=== PATIENT | female | born 1980 | race Hispanic/Latino ===

== ENCOUNTER 2017-05-03 14:06 | Emergency (ER) | payer SELFPAY ==
[2017-05-03 14:39] LABS: BHCG - Serum Negative (NEGATIVE); Pregs Control Background? CLEAR/WHITE (CLR/WHITE); Pregs Control Bar Appear? YES (CONTROL BAR)
[2017-05-03] MEDS ORDERED: Ondansetron HCl/PF 4 MG/2 ML Vial ONE (14:41)
[2017-05-03 14:51] LABS: Anion Gap 10 mmol/L (10-20); BUN (Urea Nitrogen) 13 mg/dL (7.0-18.7); Calc. Creatinine Clearance 0 mL/min (70-130); Calcium 9.2 mg/dL (7.8-10.44); Carbon Dioxide 26 mmol/L (22-29); Chloride 105 mmol/L (98-107); Estimated GFR-MDRD Greater than 90; Glucose 101 mg/dL (70-105); Sodium 137 mmol/L (136-145)
[2017-05-03] MEDS ORDERED: Ketorolac Tromethamine 30 MG/ML VIAL ONE (15:13)
[2017-05-03 15:30] LABS: Bilirubin Negative (Negative); Blood, Urine Negative (Negative); Clarity CLEAR (Clear); Glucose, Urine (Dipstick) Negative (Negative); Leukocyte Small (Negative); Nitrite Negative (Negative); Protein, Urine (Dipstick) Negative (Neg-Trace); Specific Gravity, Urine 1.016 (1.002-1.036); Urobilinogen 0.2 mg/dL (0.2-1.0); pH, Urine 6.5 (5.0-9.0)
[2017-05-03 15:32] LABS: Bacteria/HPF 1+ HPF (None Seen); Hyaline Casts/LPF 0-3 HYALINE CAST LPF (0-3 Hyaline); Pathc Cast-AUWi Flag 0.13 (0-2.49)
== END 2017-05-03 16:09 | disposition home or self-care (01) ==
LOC: ERS 14:06
DX: R51 Headache (principal); R11.2 Nausea with vomiting, unspecified; N39.0 Urinary tract infection, site not specified; F17.210 Nicotine dependence, cigarettes, uncomplicated
CPT/HCPCS: 36415; 80048; 81003; 81015; 84703; 96361; 96374; 96375; J1885; J2405

== ENCOUNTER 2017-07-29 21:53 | Emergency (ER) | payer SELFPAY ==
[2017-07-29 22:27] LABS: Bilirubin Negative (Negative); Blood, Urine Negative (Negative); Clarity CLOUDY (Clear); Glucose, Urine (Dipstick) Negative (Negative); Leukocyte Moderate (Negative); Nitrite Negative (Negative); Protein, Urine (Dipstick) Negative (Neg-Trace); Specific Gravity, Urine 1.018 (1.002-1.036); Urobilinogen 0.2 mg/dL (0.2-1.0); pH, Urine 6.5 (5.0-9.0)
[2017-07-29 22:28] LABS: Pregnancy Test - Urine (BHCG) Negative (Negative); Pregu Control Background? CLEAR/WHITE (CLR/WHITE); Pregu Control Bar Appear? YES (CONTROL BAR); Specific Gravity 1.018 (1.002-1.036)
[2017-07-29 22:29] LABS: Bacteria/HPF 2+ HPF (None Seen); Hyaline Casts/LPF 0-3 HYALINE CAST LPF (0-3 Hyaline); Pathc Cast-AUWi Flag 0.87 (0-2.49); RBC/HPF 0-3 HPF (0-3)
[2017-07-29 22:37] LABS: #Basophils 0.1 thou/uL (0.0-0.2); #Eosinphils 0.1 thou/uL (0.0-0.7); #Monocytes 0.9 thou/uL (0.11-0.59); #Neutrophils 5.2 thou/uL (1.40-6.50); %Basophils 0.8 % (0.0-1.0); %Eosinophils 1.3 % (0.0-10.0); %Lymphocytes 32.3 % (21.0-51.0); %Monocytes 9.1 % (0.0-10.0); %Neutrophils 56.5 % (42.0-75.0); Hemoglobin 10.8 g/dL (12.0-16.0); Mean Corpuscular HGB CONC 33.5 g/dL (32.0-36.0); Mean Corpuscular Hemoglobin 25.5 pg (27.0-31.0); Mean Corpuscular Volume 76.2 fl (81.0-99.0); Mean Platelet Volume 7.8 fL (7.4-10.4); Platelet Count 236 thou/uL (130-400); RBC Distribution Width 13.3 % (11.5-14.5); Red Blood Cell (RBC) Count 4.24 mill/uL (4.20-5.40); White Blood Cell (WBC) Count 9.3 thou/uL (4.8-10.8)
[2017-07-29 22:52] LABS: ALT (SGPT) 16 U/L (8-55); AST (SGOT) 16 U/L (5-34); Albumin 4.2 g/dL (3.5-5.0); Alkaline Phosphatase 82 U/L (40-150); Anion Gap 11 mmol/L (10-20); BUN (Urea Nitrogen) 15 mg/dL (7.0-18.7); Bilirubin, Total 0.2 mg/dL (0.2-1.2); Calc. Creatinine Clearance 0 mL/min (70-130); Calcium 9.2 mg/dL (7.8-10.44); Carbon Dioxide 25 mmol/L (22-29); Chloride 107 mmol/L (98-107); Estimated GFR-MDRD Greater than 90; Globulin 3.4 g/dL (2.4-3.5); Glucose 101 mg/dL (70-105); Lipase 32 U/L (8-78); Protein, Total 7.6 g/dL (6.0-8.3); Sodium 139 mmol/L (136-145)
[2017-07-30] MEDS ORDERED: Magnesium Citrate 300 ML BOT ONE (03:58)
--- NOTE | 2017-07-30 07:58 | RAD ---
AP VIEW CHEST: HISTORY: Abdominal distention and bloating, worse after eating. FINDINGS: AP view chest is obtained. Comparison is made to previous exam from 03/04/15. AP view chest demonstrates the lungs to be well aerated. No evidence of active intrathoracic disease is seen. No evidence of effusions, pneumonia, or pneumothorax is seen. IMPRESSION: Unremarkable AP view chest. POS: [facility]
--- NOTE | 2017-07-30 08:45 | CT ---
CONTRAST ENHANCED CT IMAGES OF ABDOMEN AND PELVIS: HISTORY: Patient with abdominal pain for 4 days. FINDINGS: Unfortunately, oral contrast was not given. Please see note under the history on the PACS system. The lung bases are unremarkable. No evidence of free intraperitoneal air is seen. The liver, spleen, gallbladder, pancreas, adrenal glands, and kidneys are unremarkable. No evidence of periaortic lymphadenopathy is seen. The patient has a prominent uterus. The colon contains a moderate amount of stool. IMPRESSION: Unremarkable contrast-enhanced CT images of the abdomen and pelvis. POS: [facility]
[2017-07-30] MEDS ORDERED: ISOVUE-370 76%-LOCM 1 ML ONE (16:38)
== END 2017-07-30 04:00 | disposition home or self-care (01) ==
LOC: ERS 21:53
DX: K59.00 Constipation, unspecified (principal); F17.210 Nicotine dependence, cigarettes, uncomplicated
CPT/HCPCS: 36415; 71045; 74177; 80053; 81003; 81015; 81025; 83605; 83690; 85025; 87086

== ENCOUNTER 2018-09-08 02:29 | Emergency (ER) | payer OTHER, SELFPAY ==
[2018-09-08 03:52] LABS: #Basophils 0.1 thou/uL (0.0-0.2); #Eosinphils 0.1 thou/uL (0.0-0.7); #Lymphocytes 2.8 thou/uL (1.20-3.40); #Monocytes 0.8 thou/uL (0.11-0.59); #Neutrophils 6.4 thou/uL (1.40-6.50); %Basophils 0.6 % (0.0-1.0); %Eosinophils 1.2 % (0.0-10.0); %Lymphocytes 27.1 % (21.0-51.0); %Neutrophils 63.2 % (42.0-75.0); Hemoglobin 11.8 g/dL (12.0-16.0); Mean Corpuscular HGB CONC 33.6 g/dL (32.0-36.0); Mean Corpuscular Volume 80.3 fL (78.0-98.0); Mean Platelet Volume 8.9 fL (7.4-10.4); Platelet Count 206 thou/uL (130-400); RBC Distribution Width 17.2 % (11.5-14.5); Red Blood Cell (RBC) Count 4.37 mill/uL (4.20-5.40); White Blood Cell (WBC) Count 10.2 thou/uL (4.8-10.8)
[2018-09-08 04:04] LABS: ALT (SGPT) 8 U/L (8-55); AST (SGOT) 10 U/L (5-34); Albumin 3.8 g/dL (3.5-5.0); Alkaline Phosphatase 66 U/L (40-150); Anion Gap 14 mmol/L (10-20); BUN (Urea Nitrogen) 8 mg/dL (7.0-18.7); Bilirubin, Total 0.2 mg/dL (0.2-1.2); Calc. Creatinine Clearance 0 mL/min (70-130); Calcium 9.2 mg/dL (7.8-10.44); Carbon Dioxide 20 mmol/L (22-29); Chloride 106 mmol/L (98-107); Estimated GFR-MDRD Greater than 90; Globulin 3.5 g/dL (2.4-3.5); Glucose 106 mg/dL (70-105); Lipase 11 U/L (8-78); Potassium 3.6 mmol/L (3.5-5.1); Protein, Total 7.3 g/dL (6.0-8.3); Sodium 136 mmol/L (136-145)
[2018-09-08 04:21] LABS: Bilirubin Negative (Negative); Blood, Urine Negative (Negative); Clarity CLOUDY (Clear); Glucose, Urine (Dipstick) Negative (Negative); Leukocyte Moderate (Negative); Nitrite Negative (Negative); Protein, Urine (Dipstick) Negative (Neg-Trace); Urobilinogen 0.2 mg/dL (0.2-1.0); pH, Urine 5.5 (5.0-9.0)
[2018-09-08 04:23] LABS: Bacteria/HPF 1+ HPF (None Seen); WBC/HPF 21-50 HPF (0-3)
[2018-09-08 04:41] LABS: Hyaline Casts/LPF 0-3 HYALINE CAST LPF (0-3 Hyaline); Other Casts/LPF None Seen LPF (0-3 Hyaline); Pathc Cast-AUWi Flag 3.12 (0-2.49)
--- NOTE | 2018-09-08 09:50 | ULT ---
OBSTETRIC ULTRASOUND: Date: 09/08/18 INDICATION: Left lower quadrant abdominal pain at 14 weeks . FINDINGS: There is a single, live intrauterine gestation in transverse presentation with head to maternal left. Cardiac activity is noted at 152 bpm. Placenta is anterior in location and low-lying. Placenta cover s the internal cervical os completely consistent with complete placenta previa. Amniotic fluid level appears adequate. survey is limited due to the early gestation. Visualized aspects of the head and stomach appear within normal limits. Visualized bladder appears within normal limits. Biparietal diameter 2.47 cm, giving an estimated gestational age of 14 weeks 2 days (33rd percentile) . Head circumference 8.97 cm, giving an estimated gestational age of 14 weeks 0 days (14th percentile). Abdominal circumference 7.63 cm, giving an estimated gestational age of 14 weeks 1 day (49th percenti le). Femoral length 1.28 cm, giving an estimated gestational age of 13 weeks 5 days (23rd percentile). The average gestational age by ultrasound is 14 weeks 0 days. Estimated due date is 03/09/2019. Adnexa not well seen. No free fluid definitely demonstrated. IMPRESSION: 1. Single, live intrauterine gestation, with size and dates as above. 2. Complete placenta previa. Continued clinical and sonographic follow-up recommended. 3. Limited survey due to the gestational age. POS: [facility]
== END 2018-09-08 06:00 | disposition home or self-care (01) ==
LOC: ERS 02:29
DX: O23.42 Unspecified infection of urinary tract in pregnancy, second trimester (principal); O99.89 Other specified diseases and conditions complicating pregnancy, childbirth and the puerperium; R10.30 Lower abdominal pain, unspecified; R10.814 Left lower quadrant abdominal tenderness; R10.813 Right lower quadrant abdominal tenderness; Z3A.16 16 weeks gestation of pregnancy
CPT/HCPCS: 36415; 76856; 80053; 81003; 81015; 83690; 85025; 87077; 87086; 87186

== ENCOUNTER 2018-11-08 19:11 | Day surgery (SDC) | payer MEDICAID, OTHER ==
--- NOTE | 2018-11-08 20:48 | PDOC.FPROB ---
FMR OB H&P: HPI - History of Present Illness Chief Complaint: Suprapubic/Abdominal Pain, Vaginal Leaking Indentification: 38 year old at 23.6 wks History of Present Illness: Maria Antonia Posey is a 38 yo female, at 23.6 wks by unknown dating with OB Hx significant for 2 deliveries and history of severe Pre-E in prior who is presenting with low abdominal pain and leaking of fluid with walking. She states her abdominal pain began last evening and was not intense. This morning at 1100 she states the pain intensified. Pain is every 10 minutes, on and off. She states it feels like light contractions, but not as severe. Her fluid started this morning and is present when she is walking. She is unsure if it is urine. The fluid is not odorous. This is complicated by maternal hypothyroidism. She has OB history significant for a at 6 months secondary to pre-term labor followed by a delivery secondary to pre-E requiring magnesium at 7 months. The next resulted in a miscarriage. She denies chronic hypertension. She denies any STD history. Primary Care Physician: AUGUSTINE Santos FMR OB H&P: Current - Care : 5 Para: [id number] Gestational age: 23.6 wks Due date: 03/02/2019 Dating Criteria: Unknown - OB Labs Blood type: O RH: positive Antibody Screen: unknown HIV: unknown RPR: unknown HepBsAg: unknown Quad screen: unknown Urine drug screen: not done Gonorrhea: unknown Chlamydia: unknown GBS: unknown FMR OB H&P: History - Past Medical History PMH: Hypothyroidism - OB History OB History: 1 term PTL with PTD at 6 months via during second PTD delivery at 7 months 2/2 Pre-E with severe features requiring Mg during 3rd Miscarriage x1 Anemia complicating - 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 History: Denies any history of STD's - Surgical History Sx History: Denies - Social History Social History: Denies alcohol, drug use, tobacco use - Family History Family History: Mother - hypothyroid, DM FMR OB H&P: Medications - Current Home Medications: Medication Instructions Recorded Confirmed Type Nitrofurantoin Macrocrystal 100 mg PO BID 5 Days capsule 03/06/15 Rx [Nitrofurantoin] Pantoprazole [Protonix] 40 mg PO DAILY #0 tab 03/06/15 Rx Allergies/Adverse Reactions: Allergies Allergy/AdvReac Type Severity Reaction Status Date / Time No Known Drug Allergies Allergy Verified 03/04/15 03:08 FMR OB H&P: ROS - Review of Systems General: denies: fever/chills ENT: denies: nasal congestion, rhinorrhea Cardiovascular: denies: chest pain, palpitation Respiratory: denies: cough, congestion Gastrointestinal: reports: abdominal pain. denies: nausea, vomiting, diarrhea, constipation Genitourinary (Female): reports: vaginal discharge, contractions, vaginal pressure. denies: dysuria Neurologic: denies: syncope, weakness Integumentary: denies: itching, rash, lesions Psychological: denies: depression, anxiety FMR OB H&P: Vital Signs - Maternal Vital signs: BP 118/58 Pulse 75 O2 sat 100% on RA Afebrile FMR OB H&P: Physical Exam - Physical Exam General: NAD HEENT: EOMI, MMM, grossly normal vision, grossly normal hearing Heart: RRR General: no respiratory distress Abdomen: soft, gravid Deviation from normal: Mild suprapubic tenderness Musculoskeletal: pulses present, FROM in all four extremities Neurological: no tremor, no focal deficit Skin: no rash, capillary refill <2 seconds FMR OB H&P: A/P - Problem List (1) Abdominal pain Status: Acute Code(s): R10.9 - UNSPECIFIED ABDOMINAL PAIN (2) History of pre-eclampsia Status: Acute Code(s): Z87.59 - PERSONAL HISTORY OF COMP OF PREG, CHLDBRTH AND THE PUERP (3) History of delivery Status: Acute Code(s): Z87.51 - PERSONAL HISTORY OF PRE-TERM LABOR (4) History of Status: Acute Code(s): Z98.891 - HISTORY OF UTERINE SCAR FROM PREVIOUS SURGERY Disposition: 38 year old at 23.6 weeks presents with abdominal pain Abdominal pain at 23.6 wks - Hx of PTL with PTD at 6 months - Patient on vaginal progesterone during last but not during this - Pelvic exam revealed significant amount of discharge - Cervical length 2.6 cm with funneling on abdominal sono; however, on TVUS cervical length 3.4 cm with minimal funneling noted. - Unable to visualize cervix on speculum exam. Ultrasound revealed anterior placenta with no concern for previa. Cervical dilation 1 cm. - GC/CT pending - VP3 negative - UA negative - PO hydrated - EFW on sono 526g with EGA 22.5 wk Leaking of fluid - Aminsure negative - DELFIN 20 cm - Unable to visualize cervix, but speculum exam with significant discharge. Amnisure collected from speculum exam was negative. - Ua negative - VP3 pending - GC/CT pending Hx of PTD at 6 months - Patient was on progesterone vaginally during last , but she has not been on any during this Hx of Delivery at 7 months secondary to severe Pre-E - Denies any problems with BP during this - BP WNL today - Patient on ASA Disposition: labor ruled out. VP3 negative. GC/CT still pending. Patient PO hydrate. Cervical length 3.4 cm by TVUS. Likely this is round ligament pain. Will call [facility] to get patient appt for Monday or early next week. She will need to start on progesterone. This was discussed with patient. Ariane Ye, PGY-3 Discussion: Date/Time: 11/08/182039 This H&P was discussed with Dr. Jimenez who agrees with the above documentation and plan. Addendum - Attending - Attending Attestation Date/Time: 11/12/18825 I personally evaluated the patient and discussed the management with Dr. Ye I agree with the History, Examination, Assessment and Plan documented above with any addition or exceptions noted below. Pt reports pelvic pains exacerbated with activity and movement. sharp in nature h/o 7month delivery. on progesterone with last . not on it this vital signs reviewed and normal. abdomen soft, ttp with deviation of the uterus R.L CL 3.4cm - with beaking on internal os A/P iup 23wks ligamentous pains. -tylenol/heat to area, rest no evidence of labor h/o ptd - will need to start progesterone and close f/u. Dr Ye has agreed to take on this responsibility. will f/u [facility] in the next few days
[2018-11-08 20:53] LABS: Amnisure Test No Membranes Rupture (No Rupture)
[2018-11-08] MEDS ORDERED: hydrALAZINE 20 MG/ML VIAL SLOW IVP PRN (20:53)
[2018-11-08 20:54] LABS: Amnisure Internal Control QC ACCEPTABLE (ACCEPTABLE)
[2018-11-08 21:06] VITALS: BMI 36.6
[2018-11-08 21:51] LABS: Bilirubin Negative (Negative); Blood, Urine Negative (Negative); Clarity Clear (Clear); Glucose, Urine (Dipstick) Normal (Negative); Leukocyte Negative Leu/uL (Negative); Nitrite Negative (Negative); Protein, Urine (Dipstick) Negative (Neg-Trace); RBC/HPF 0-3 HPF (0-3); Squamous Epithelial 0-3 HPF (0-3); Urobilinogen Normal mg/dL (Less than 2); WBC/HPF 0-3 HPF (0-3)
[2018-11-08 21:59] LABS: Bacteria/HPF None Seen HPF (None Seen)
--- NOTE | 2018-11-08 22:55 | ULT ---
OB ULTRASOUND: 11/08/18 INDICATIONS: Cervical length, EFW and placental location are requested. Single viable intrauterine identified. Gestational age by ultrasound is 22 weeks, 5 days. B iometry measurements are all consistent and symmetric. DELFIN recorded at 20 cm. heart rate 143. Position: Vertex. Placenta: Anterior. Cervical length: 2.6 cm. Mild cervical funneling was noted by the technologist. IMPRESSION: 22 week, 5 day gestation by ultrasound. POS: [facility]
[2018-11-08 23:36] VITALS: BP 118/58; TEMP 98.2
--- NOTE | 2018-11-09 07:54 | ULT ---
Limited pelvic ultrasound for evaluation of cervical length HISTORY: Intrauterine gestation. Evaluation of cervical length was requested. COMPARISON: 09/03/2018 FINDINGS/IMPRESSION: Limited endovaginal sonographic images are obtained to evaluate for cervical length. Cervical length on endovaginal imaging measures 3.4 cm. A transabdominal measurement of 2.6 cm was obtained on prior study. No fluid is seen in the endocervical canal. The fetus was not evaluated on this exam. Dr Mariah Ye was present during the exam.
[2018-11-11 20:36] LABS: Chlamydia by PCR Not Detected (NotDetected); GC by PCR Not Detected (NotDetected)
== END 2018-11-09 02:00 | disposition home or self-care (01) ==
LOC: L&D/OP 19:11
PROVIDERS: ATTEND Obstetrics & Gynecology
DX: O99.89 Other specified diseases and conditions complicating pregnancy, childbirth and the puerperium (principal); R10.30 Lower abdominal pain, unspecified; N89.8 Other specified noninflammatory disorders of vagina; Z3A.23 23 weeks gestation of pregnancy; Z79.899 Other long term (current) drug therapy
CPT/HCPCS: 76805; 76815; 76857; 81001; 84112; 87480; 87491; 87510; 87591; 87660; 99285

== ENCOUNTER 2018-12-30 12:20 | Day surgery (SDC) | payer OTHER ==
[2018-12-30 12:59] VITALS: BP 120/62; TEMP 98.2; BMI 36.0
[2018-12-30] MEDS ORDERED: hydrALAZINE 20 MG/ML VIAL SLOW IVP PRN (13:47)
[2018-12-30] MEDS ORDERED: Acetaminophen 500 MG TAB PO PRN (13:48)
[2018-12-30] MEDS ORDERED: Lactated Ringer's 1,000 ML IV SCH (14:00)
[2018-12-30 14:37] LABS: Bacteria/HPF None Seen HPF (None Seen); Bilirubin Negative (Negative); Blood, Urine Negative (Negative); Clarity Clear (Clear); Glucose, Urine (Dipstick) Normal (Negative); Leukocyte Negative Leu/uL (Negative); Nitrite Negative (Negative); Protein, Urine (Dipstick) Negative (Neg-Trace); RBC/HPF 0-3 HPF (0-3); Squamous Epithelial 0-3 HPF (0-3); Urobilinogen Normal mg/dL (Less than 2); WBC/HPF 0-3 HPF (0-3)
[2018-12-30 14:38] LABS: Urine Culture Reflex No No
[2018-12-30 14:42] LABS: Amnisure Test No Membranes Rupture (No Rupture)
[2018-12-30 14:43] LABS: Amnisure Internal Control QC ACCEPTABLE (ACCEPTABLE)
[2018-12-30 14:49] LABS: FFN Internal QC Analyzer PASS (PASS); FFN Internal QC Cassette PASS (PASS); Fetal Fibronectin Negative (Negative)
--- NOTE | 2018-12-30 14:50 | PDOC.FPROB ---
FMR OB H&P: HPI - History of Present Illness Chief Complaint: vaginal bleeding and cramping History of Present Illness: 38 y/o , @ 30.3 wks presents to L&D after having vaginal bleeding and lower abdominal cramping starting at 0400 on 12/30. Pt was seen in August and diagnosed with complete Placenta Previa. No mention of Previa in October when seen here. She was put on bed rest at discharge from October hospitalization for vaginal bleeding. Pt denies any sexual intercourse recently. Pt describes burning with urination, no hematuria. Feeling movements appropriately. Denies vaginal discharge. Denies LOF. Primary Care Physician: KOBI FMR OB H&P: Current - Care : 5 Para: 3013 Gestational age: 30.3 Due date: 03/07/19 - OB Labs Blood type: O RH: positive Antibody Screen: negative HIV: negative RPR: negative HepBsAg: negative Rubella: immune Pap Smear: NILM, HPV - A1c: 5.7 GBS: unknown Additional labs: TSH 7.970 FMR OB H&P: History - Past Medical History PMH: Hypothyroidism Anemia - OB History OB History: Pre- Eclampsia in prior - FRUIT GROWER History FRUIT GROWER History: NILM pap - Surgical History Sx History: none - Social History Social History: Denies drugs, etoh, or tobacco use. - Family History Family History: Mother and Father: DM, HTN, HLD, [place] Mother: Hypothyroidism FMR OB H&P: Medications - Current Home Medications: Medication Instructions Recorded Confirmed Type Acetaminophen [Tylenol Extra 1,000 mg PO Q6H PRN tab 12/30/18 Rx Strength] Levothyroxine Sodium 1 tab PO DAILY 12/30/18 12/30/18 History Pnv73/Iron,Gluc/Folic/Dss/Dha 1 tab PO DAILY 12/30/18 12/30/18 History [Citranatal Assure Combo Pack] Allergies/Adverse Reactions: Allergies Allergy/AdvReac Type Severity Reaction Status Date / Time No Known Drug Allergies Allergy Verified 03/04/15 03:08 FMR OB H&P: ROS - Review of Systems General: denies: fever/chills, fatigue Eyes: denies: eye pain, vision changes ENT: denies: nasal congestion, sore throat Cardiovascular: reports: edema. denies: chest pain, palpitation Respiratory: denies: cough, shortness of breath Gastrointestinal: reports: abdominal pain, cramping. denies: indigestion, bloating, nausea, vomiting, diarrhea, constipation, bright red blood Genitourinary (Female): reports: dysuria, polyuria, vaginal pain, vaginal bleeding, vaginal pressure. denies: incontinence, hematuria, hesitancy, vaginal discharge, vaginal mass/sore, contractions Musculoskeletal: denies: pain, stiffness Neurologic: denies: numbness, syncope, weakness Endocrine: reports: polyuria. denies: polydipsia, polyphagia Psychological: denies: depression, anxiety FMR OB H&P: Vital Signs - Maternal Vital signs: Vital Signs - First Documented Temp Pulse Resp BP 98.2 F 76 18 120/62 12/30/18 12:40 12/30/18 12:40 12/30/18 12:40 12/30/18 12:40 - Heart Tones Baseline: 125 (reactive ) Variability: moderate Acceleration: present Deceleration: absent Goddard contractions every: none FMR OB H&P: Physical Exam - Physical Exam General: NAD, awake, alert and oriented HEENT: normocephalic and atraumatic, PERRLA, EOMI, MMM, conjunctiva clear, no scleral icterus, grossly normal vision, grossly normal hearing, oropharynx clear , good dention Neck: supple, FROM, trachea midline, no LAD, no JVD Chest: non-tender to palpation, no lesions Heart: RRR, normal S1/S2, no murmurs/rubs/gallops, pulses present, no edema General: CTAB, no respiratory distress, good air movement, no rales/rhonchi, no wheezing, no retractions Abdomen: soft, gravid, non-tender, bowel sound present, no masses, no hernias Musculoskeletal: normal gait and station, pulses present, FROM in all four extremities, no misalignment/asymmetry, no atrophy Neurological: cranial nerves II through XII intact, sensation to pain,touch and proprioception grossly normal, no clonus, no tremor, no focal deficit Skin: no rash, good tugor, capillary refill <2 seconds, no jaundice Lymphatic: no unusual bruising or bleeding, no purpura, no petechia, no LAD Psychiatric: intact recent and remote memory, good judgement and insight, normal mood and affect FMR OB H&P: Results - Labs Lab results: Laboratory Results - last 24 hr 12/30/18 12/30/18 14:15 14:15 Urine Color Colorless Urine Clarity Clear Urine pH 6.5 Ur Specific Halbur 1.007 Urine Protein Negative Urine Glucose (UA) Normal Urine Ketones Negative Urine Blood Negative Urine Nitrite Negative Urine Bilirubin Negative Urine Urobilinogen Normal Ur Leukocyte Esterase Negative Urine RBC 0-3 Urine WBC 0-3 Ur Squamous Epith Cells 0-3 Urine Bacteria None Seen Urine Culture Reflexed No Amnio Swab Test No Membranes Rupture - Imaging Imaging: US: Low lying placenta, cannot adequately assess the edge of placenta. FMR OB H&P: A/P Disposition: Stable. Will continue to assess for need of admission. Discussion: Date/Time: 12/30/181444 38 y/o F, @ 30.3 wks , , in L&D triage for vaginal bleeding and lower abdominal cramping. 1. IUP at 30.3 wks - Amnisure, FFN, BPP, NST - FHT's 125 and reactive - No contractions on TOCO 2. Vaginal Bleeding - Hx of complete placenta previa in this - UA negative 3. Abdominal cramping - UA negative - No ctx on TOCO 4. Placenta Previa - BPP with comment of placental location. - Transabdominal US showed low lying placenta, but could not adequately assess the edge of the placenta. 5. Hypothyroidism - Continue home dose of synthroid. - TSH 7.970 This H&P was discussed with Dr. Rubalcava who agree with the above documentation and plan. Addendum - Attending - Attending Attestation Date/Time: 12/30/182047 I personally evaluated the patient and discussed the management with Dr. Hollins. I agree with the History, Examination, Assessment and Plan documented above with any addition or exceptions noted below. No e/o active bleeding on speculum exam. No e/o PTL or other acute process. Follow up in clinic as scheduled.
--- NOTE | 2018-12-30 14:58 | ULT ---
NONSTRESS BIOPHYSICAL PROFILE: HISTORY: Evaluate . Evaluate placenta placement. Prima previa. FINDINGS: Single intrauterine gestation, vertex presentation. Anterior placenta. The tip of the placenta is approximately 2.2 cm from what may be the inner cervica l os. Evaluation of the cervix is limited on the transabdominal images. Based upon the endovaginal images, the cervical length is 3.1 cm. However, placental margin cannot be assessed with respect to f ocal loss. Amniotic fluid index 11.9 cm. heart tones with a rate of 150 bpm. Nonstress biophysical profile: tone 2 breathing 2 movement 2 Amniotic fluid 2 Total score is 8 out of 8 IMPRESSION: 1. Single intrauterine gestation. Vertex presentation. Based upon the transabdominal images, there do es appear to be a low-lying placenta with the tip approximately 2.2 cm from the expected region of the inner cervical os. Findings are worrisome for low-lying placenta. 2. Cervical length is approximately 3.1 cm. 3. Nonstress biophysical profile score is 8 out of 8. Results of study were conveyed by the medical care managerLupe to the L&D nurse, Sabra at the completion of the exam. CODE CR Transcribed Date/Time: 12/30/2018 3:08 PM
--- NOTE | 2018-12-30 15:20 | PDOC.EVN ---
Event Note - Event Note Event Note: Performed Sterile Spec exam. No bleeding from os. Slight vaginal discharge. 11/22 on BPP. Pt's pain responded well to Tylenol. Pt was discharged home in a stable state. Continue pelvic rest, no need for further bed rest.
== END 2018-12-30 15:30 | disposition home or self-care (01) ==
LOC: L&D/OP 12:20
PROVIDERS: ATTEND Obstetrics & Gynecology
DX: O44.13 Complete placenta previa with hemorrhage, third trimester (principal); O99.89 Other specified diseases and conditions complicating pregnancy, childbirth and the puerperium; R10.30 Lower abdominal pain, unspecified; O99.283 Endocrine, nutritional and metabolic diseases complicating pregnancy, third trimester; E03.9 Hypothyroidism, unspecified; Z3A.30 30 weeks gestation of pregnancy; Z79.899 Other long term (current) drug therapy
CPT/HCPCS: 51701; 76819; 81001; 82731; 84112; 96360; 99285; A4353

== ENCOUNTER 2019-01-24 13:52 | Day surgery (SDC) | payer OTHER ==
[2019-01-24 14:36] VITALS: BP 132/61; TEMP 99.1; BMI 36.2
--- NOTE | 2019-01-24 15:47 | PDOC.FPROB ---
FMR OB H&P: HPI - History of Present Illness Chief Complaint: referred from [facility] for non-reassuring FHTs Indentification: History of Present Illness: 39YO @ 34 weeks by LMP c/w 9 week sono who presented to L&D from [facility] for variable heart tones noted at her routine office visit. The patient reports feeling well except for occasional lower abdominal cramping that has been sporadic over the last 3 days. She reports regular movement and denies any dysuria or abnormal vaginal discharge, bleeding or leaking of fluid. Denies any chest pain, headache, vision changes or SOB as well. Primary Care Physician: [facility] FMR OB H&P: Current - Care : 5 Para: 3 Gestational age: 0 Due date: 1 Dating Criteria: 3 Course/Complications: AMA, h/o pre-e in last , anemia of , obesity, percy thyroiditis - OB Labs Blood type: O RH: positive Antibody Screen: negative HIV: negative RPR: negative HepBsAg: negative Rubella: immune Urine drug screen: not done Gonorrhea: negative Chlamydia: negative Pap Smear: may of 2018: NILM & HPV negative A1c: 5.7 GBS: unknown - First Trimester Ultrasound First trimester: USG c/w LMP - Anatomy Survey Anatomy survey: EFW 30%; normal anatomy & ECHO FMR OB H&P: History - Past Medical History PMH: See OB complications - OB History OB History: preg #1: # 40 weeks #2: @ 40 weeks #3: SAB @ 10 weeks #4: @ 37 weeks - BASKET TURNER History BASKET TURNER History: NILM & HPV negative - Surgical History Sx History: none - Social History Social History: No TAD - Family History Family History: Mother- hypothyroidism, DMII, HTN FMR OB H&P: Medications - Current Home Medications: Medication Instructions Recorded Confirmed Type Levothyroxine Sodium 1 tab PO DAILY 12/30/18 01/24/19 History Pnv73/Iron,Gluc/Folic/Dss/Dha 1 tab PO DAILY 12/30/18 01/24/19 History [Citranatal Assure Combo Pack] Allergies/Adverse Reactions: Allergies Allergy/AdvReac Type Severity Reaction Status Date / Time No Known Drug Allergies Allergy Verified 03/04/15 03:08 FMR OB H&P: ROS - Review of Systems General: denies: fever/chills Eyes: denies: vision changes, double vision ENT: denies: nasal congestion, sore throat Cardiovascular: denies: chest pain, palpitation Respiratory: denies: cough, shortness of breath Gastrointestinal: reports: abdominal pain. denies: nausea, vomiting, diarrhea, constipation Genitourinary (Female): denies: dysuria, hematuria, vaginal discharge, vaginal pain, vaginal bleeding Neurologic: denies: syncope, loss of counsciousness Integumentary: denies: rash, lesions FMR OB H&P: Vital Signs - Maternal Vital signs: Vital Signs - First Documented Temp Pulse Resp BP Pulse Ox 99.1 F 85 18 132/61 98 01/24/19 14:29 01/24/19 14:29 01/24/19 14:29 01/24/19 14:29 01/24/19 14:29 - Heart Tones Baseline: 140 Variability: moderate Acceleration: present Deceleration: absent FMR OB H&P: Physical Exam - Physical Exam General: NAD, awake, alert and oriented HEENT: normocephalic and atraumatic, conjunctiva clear, no scleral icterus, grossly normal vision, grossly normal hearing Neck: supple, FROM Heart: RRR, normal S1/S2, pulses present, no edema General: CTAB, no respiratory distress, good air movement, no rales/rhonchi, no wheezing, no retractions Abdomen: gravid, non-tender Musculoskeletal: normal gait and station, FROM in all four extremities Neurological: cranial nerves II through XII intact, sensation to pain,touch and proprioception grossly normal, no focal deficit Skin: no rash, good tugor, capillary refill <2 seconds, no jaundice Lymphatic: no unusual bruising or bleeding, no purpura, no petechia Psychiatric: intact recent and remote memory, good judgement and insight, normal mood and affect FMR OB H&P: A/P - Problem List (1) Elderly multigravida, currently in third trimester Status: Acute Code(s): O09.523 - SUPERVISION OF ELDERLY MULTIGRAVIDA, THIRD TRIMESTER (2) History of pre-eclampsia Status: Acute Code(s): Z87.59 - PERSONAL HISTORY OF COMP OF PREG, CHLDBRTH AND THE PUERP Disposition: 39YO @ 34 wks by LMP c/w 9 week sono who presented to L&D for extended heart monitoring per the recommendations of physicians in [facility]. Variable decelerations during outpatient monitoring: - REassuring FHTs since arrival w/ baseline in the 140s & multiple accels w/o decels over ~1 hour of monitoring. - No contractions on TOCO. AMA, high risk : - Aware, patient follows w/ MFM. h/o pre-e in prior : - Aware, BPs WNLs since arrival. - Continue ASA for PPx. Hypothyroidism - Continue home dose of synthroid. Dispo: Will d/c home with instructions to keep all regularly scheduled outpatient follow-up appts. Discussion: Date/Time: 01/24/19 084 This H&P was discussed with [] and [] who agree with the above documentation and plan. Addendum - Attending - Attending Attestation Date/Time: 01/24/19 1631 I personally evaluated the patient and discussed the management with Dr. Cahpman I agree with the History, Examination, Assessment and Plan documented above with any addition or exceptions noted below. Reactive NST. No decels. No contractions. +FM perceived by mother and heard on doppler. BPP 11/22. Follow up with [facility] next week. Continue weekly testing. Anand
== END 2019-01-24 16:00 | disposition home health service (06) ==
LOC: L&D/OP 13:52
PROVIDERS: ATTEND Student in an Organized Health Care Education/Training Program
DX: O36.8330 Maternal care for abnormalities of the fetal heart rate or rhythm, third trimester, not applicable or unspecified (principal); O09.523 Supervision of elderly multigravida, third trimester; O99.283 Endocrine, nutritional and metabolic diseases complicating pregnancy, third trimester; E03.9 Hypothyroidism, unspecified; E06.3 Autoimmune thyroiditis; O99.213 Obesity complicating pregnancy, third trimester; E66.9 Obesity, unspecified; O99.013 Anemia complicating pregnancy, third trimester; D64.9 Anemia, unspecified; Z3A.34 34 weeks gestation of pregnancy; Z87.59 Personal history of other complications of pregnancy, childbirth and the puerperium; Z79.899 Other long term (current) drug therapy

== ENCOUNTER 2019-01-31 13:30 | Day surgery (SDC) | payer OTHER ==
--- NOTE | 2019-01-31 14:02 | PDOC.FPROB ---
FMR OB H&P: HPI - History of Present Illness Chief Complaint: Oligohydramnios Indentification: 39yo History of Present Illness: Maria Antonia is a 39yo @ [id number] EGA who presented to clinic today for a weekly NST/BPP. She reported 2 days of constant leaking of fluid and using pad. At the clinic she was noted to have low amniotic fluid and was sent over to L&D for evaluation. She is feeling movement and vaginal pressure. She denies vaginal bleeding , discharge, or frequent contractions. She has irregular contractions that are sharp and painful, but not consistent. FMR OB H&P: Current - Care : 5 Para: 1213 Gestational age: 35.0 Due date: 03/07/2019 Dating Criteria: LMP / 9wk sono Course/Complications: Namita's thyroiditis/hypothyroidism, anemia, obesity, AMA, h/o PPROM w/ PTL x1, h/o pre-e w/ PTD - OB Labs Blood type: O RH: positive Antibody Screen: negative HIV: negative RPR: negative HepBsAg: negative Rubella: immune Gonorrhea: negative Chlamydia: negative Pap Smear: NILM, HPV negative 1 hour gtt: Passed 2hr. (91/150/143) A1c: 5.7 GBS: unknown (ordered today) Additional labs: Hep C negative Urine culture 11/18/18 >[id number] CFU. Inquiring clinic about treatment. - First Trimester Ultrasound First trimester: 1T H/H 10.3/32.2 - Anatomy Survey Anatomy survey: Done at [facility] - normal. Anterior placenta. Cephalic presentation. 3 vessel cord. 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 History: denies abnormal paps or h/o STIs - Surgical History Sx History: None - Social History Social History: Denies - Family History Family History: Prominent history of DM, HTN, [place] FMR OB H&P: Medications - Current Home Medications: Medication Instructions Recorded Confirmed Type Levothyroxine Sodium 1 tab PO DAILY 12/30/18 01/24/19 History Pnv73/Iron,Gluc/Folic/Dss/Dha 1 tab PO DAILY 12/30/18 01/24/19 History [Citranatal Assure Combo Pack] Nitrofurantoin Monohyd/M-Cryst 100 mg PO BID #7 cap 01/31/19 Rx [Macrobid] Allergies/Adverse Reactions: Allergies Allergy/AdvReac Type Severity Reaction Status Date / Time No Known Drug Allergies Allergy Verified 01/31/19 15:04 FMR OB H&P: ROS - Review of Systems Eyes: denies: vision changes, double vision Respiratory: reports: cough, congestion Gastrointestinal: reports: diarrhea. denies: abdominal pain, bloating, cramping , nausea, vomiting Genitourinary (Female): reports: dysuria. denies: incontinence, hematuria, polyuria Musculoskeletal: denies: pain, stiffness Neurologic: reports: headache Integumentary: denies: itching, rash Endocrine: denies: cold intolerance, heat intolerance Hematologic/Lymphatic: denies: prolonged or excessive bleeding Psychological: denies: depression, anxiety FMR OB H&P: Vital Signs - Maternal Vital signs: 136/62, pulse 92, 99% on RA - Heart Tones Baseline: 120 Variability: moderate Acceleration: present Deceleration: absent [place] contractions every: none FMR OB H&P: Physical Exam - Physical Exam General: NAD, awake, alert and oriented HEENT: normocephalic and atraumatic, PERRLA, EOMI, grossly normal vision, grossly normal hearing Neck: supple Chest: non-tender to palpation Breast: symmetric, non-tender Heart: RRR, normal S1/S2, no murmurs/rubs/gallops, pulses present General: CTAB, no respiratory distress, good air movement, no rales/rhonchi, no wheezing Abdomen: soft, gravid, non-tender Musculoskeletal: normal gait and station Skin: no rash, good tugor Lymphatic: no unusual bruising or bleeding, no petechia Psychiatric: intact recent and remote memory, good judgement and insight FMR OB H&P: Results - Labs Lab results: Laboratory Tests 01/31/19 14:41 Amnio Swab Test No Membranes Rupture - Imaging Imaging: BPP showed 11/22, DELFIN of FMR OB H&P: A/P Discussion: Date/Time: 01/31/19 1401 39yo at 35wks EGA. JESSICA 03/07/2019. 1. Oligohydramnios -BPP w/ umbilical doppler: 11/22, DELFIN 7.4, FHT 140, Anterior placenta, Vertex -Amnisure negative -Reactive NST -No contractions 2. Leakage of fluid -amnisure negative -sterile speculum exam did not reveal pooling -Urine culture from clinic on 01/22 showed Enterococcus, she is asymptomatic, however she may be experiencing incontinence from infection. 3. sIUP -reactive NST. -normal US. -continue routine care. F/u next week for weekly BPP/NST. 4. Enterococcus UTI -Will send home with 7 days of Macrobid 5. Namita's thyroiditis/hypothyroidism -aware, following 6. Anemia -aware, following 7. Obesity -aware 8. AMA -aware 9. h/o PPROM w/ PTL x1 10. h/o pre-e w/ PTD This H&P was discussed with Drs. Dale and Ari who agree with the above documentation and plan. Addendum - Attending - Attending Attestation Date/Time: 01/31/19 4025 I personally evaluated the patient and discussed the management with Dr. Perrin. I agree with the History, Examination, Assessment and Plan documented above with any addition or exceptions noted below.
[2019-01-31] MEDS ORDERED: hydrALAZINE 20 MG/ML VIAL SLOW IVP PRN (14:11)
[2019-01-31 15:04] VITALS: BMI 36.8
[2019-01-31 15:05] LABS: Amnisure Test No Membranes Rupture (No Rupture)
[2019-01-31 15:06] LABS: Amnisure Internal Control QC ACCEPTABLE (ACCEPTABLE)
--- NOTE | 2019-01-31 17:14 | ULT ---
DOPPLER ULTRASOUND WITH FLOW: 01/31/19 Ultrasound and Doppler studies performed on the umbilical artery. Color Doppler, spectral analysis an d velocity recordings obtained at all segments. FINDINGS: See biophysical profile report for findings. POS: [facility]
--- NOTE | 2019-01-31 17:29 | ULT ---
BIOPHYSICAL PROFILE: 01/31/19 INDICATIONS: History of oligohydramnios. FINDINGS/IMPRESSION: movement: Score 2 tone: Score 2 breathing: Score 2 Amniotic fluid volume: Score 2 Total Score: 8/8. DELFIN recorded at 7.4 cm. heart rate: 140 beats per minute. Placenta: Anterior. Position: Vertex. UMBILICAL DOPPLER: At placenta: 116.4/47.4. Mid cord: 120.8/61.8. At cord insertion: 65.3/19.7. POS: [facility]
== END 2019-01-31 16:06 | disposition home health service (06) ==
LOC: L&D/OP 13:30
PROVIDERS: ATTEND Family Medicine
DX: O41.03X0 Oligohydramnios, third trimester, not applicable or unspecified (principal); O99.283 Endocrine, nutritional and metabolic diseases complicating pregnancy, third trimester; E06.3 Autoimmune thyroiditis; O99.013 Anemia complicating pregnancy, third trimester; O99.213 Obesity complicating pregnancy, third trimester; E66.9 Obesity, unspecified; O23.43 Unspecified infection of urinary tract in pregnancy, third trimester; B95.2 Enterococcus as the cause of diseases classified elsewhere; O09.523 Supervision of elderly multigravida, third trimester; Z3A.35 35 weeks gestation of pregnancy; Z79.899 Other long term (current) drug therapy
CPT/HCPCS: 76700; 76819; 84112; 87081

== ENCOUNTER 2019-02-12 17:35 | Day surgery (SDC) | payer OTHER ==
[2019-02-12 18:11] VITALS: BMI 38.6
[2019-02-12 18:47] VITALS: BP 127/70; TEMP 99.1
[2019-02-12] MEDS ORDERED: hydrALAZINE 20 MG/ML VIAL SLOW IVP PRN (19:01)
[2019-02-12 19:44] LABS: #Basophils 0.1 thou/uL (0.0-0.2); #Eosinphils 0.3 thou/uL (0.0-0.7); #Lymphocytes 2.6 thou/uL (1.20-3.40); #Monocytes 0.9 thou/uL (0.11-0.59); #Neutrophils 10.4 thou/uL (1.40-6.50); %Basophils 0.3 % (0.0-1.0); %Eosinophils 1.9 % (0.0-10.0); %Lymphocytes 18.4 % (21.0-51.0); %Monocytes 6.6 % (0.0-10.0); %Neutrophils 72.8 % (42.0-75.0); Hemoglobin 11.9 g/dL (12.0-16.0); Mean Corpuscular HGB CONC 33.8 g/dL (32.0-36.0); Mean Corpuscular Hemoglobin 28.5 pg (27.0-31.0); Mean Corpuscular Volume 84.4 fL (78.0-98.0); Mean Platelet Volume 7.9 fL (7.4-10.4); Platelet Count 239 thou/uL (130-400); RBC Distribution Width 13.1 % (11.5-14.5); Red Blood Cell (RBC) Count 4.19 mill/uL (4.20-5.40); White Blood Cell (WBC) Count 14.3 thou/uL (4.8-10.8)
[2019-02-12 19:55] LABS: Creatinine, Urine 164.06 mg/dL (47-110)
[2019-02-12 20:05] LABS: ALT (SGPT) 15 U/L (8-55); AST (SGOT) 17 U/L (5-34); Albumin 3.7 g/dL (3.5-5.0); Alkaline Phosphatase 138 U/L (40-110); Anion Gap 14 mmol/L (10-20); BUN (Urea Nitrogen) 10 mg/dL (7.0-18.7); Bilirubin, Total 0.2 mg/dL (0.2-1.2); Calc. Creatinine Clearance 188 mL/min (70-130); Calcium 9.1 mg/dL (7.8-10.44); Carbon Dioxide 20 mmol/L (22-29); Chloride 107 mmol/L (98-107); Estimated GFR-MDRD Greater than 90; Globulin 3.9 g/dL (2.4-3.5); Glucose 95 mg/dL (70-105); Potassium 3.8 mmol/L (3.5-5.1); Protein, Total 7.6 g/dL (6.0-8.3); Sodium 137 mmol/L (136-145)
--- NOTE | 2019-02-12 22:13 | PDOC.FPROB ---
FMR OB H&P: HPI - History of Present Illness Chief Complaint: Elevated BP at home History of Present Illness: Maria Antonia is a 39yo @ [id number] EGA who presented today with complaints of elevated BP at home. Pt stated that she was doing house work at home and then took her BP and found it to be 172 systolic. She took it again after drinking a coke and it had came down to 156 systolic. This concerned her prompting her to come in for evaluation. She is feeling movement and vaginal pressure. She denies vaginal bleeding , discharge, or frequent contractions. She has irregular contractions that are sharp and painful, but not consistent, occurring over 1 hr apart. Pt noted visual spots to nursing staff but denied any of these problems to me. Notes intermittent headaches that has occurred throughout her . Primary Care Physician: AUGUSTINE FMR OB H&P: Current - Care : 5 Para: 1213 Gestational age: 36.5 Due date: 03/07/2019 Dating Criteria: LMP/9wk Course/Complications: Namita's thyroiditis/hypothyroidism, anemia, obesity, AMA, h/o PPROM w/ PTL x1, h/o pre-e w/ PTD - OB Labs Blood type: O RH: positive Antibody Screen: negative HIV: negative RPR: negative HepBsAg: negative Rubella: immune Gonorrhea: negative Chlamydia: negative Pap Smear: NILM 1 hour gtt: Passed A1c: 5.7 GBS: negative FMR OB H&P: History - Past Medical History PMH: Hypothyroidism - OB History OB History: 1 term PTL with PTD at 6 months via during second PTD delivery at 7 months 2/2 Pre-E with severe features requiring Mg during 3rd Miscarriage x1 - 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 History: Denies abnormal paps in hx - Surgical History Sx History: None - Social History Social History: Non contributory - Family History Family History: Non contributory FMR OB H&P: Medications - Current Home Medications: Medication Instructions Recorded Confirmed Type Levothyroxine Sodium 1 tab PO DAILY 12/30/18 02/12/19 History Pnv73/Iron,Gluc/Folic/Dss/Dha 1 tab PO DAILY 12/30/18 02/12/19 History [Citranatal Assure Combo Pack] Aspirin Chewable 81 mg PO DAILY 02/12/19 02/12/19 History Allergies/Adverse Reactions: Allergies Allergy/AdvReac Type Severity Reaction Status Date / Time No Known Drug Allergies Allergy Verified 01/31/19 15:04 FMR OB H&P: ROS - Review of Systems General: denies: fever/chills, weight/appetite/sleep changes Eyes: denies: vision changes (denied to provider, spots to nurse), double vision ENT: denies: nasal congestion, rhinorrhea Cardiovascular: denies: chest pain, edema Respiratory: reports: cough (colds in household). denies: shortness of breath Gastrointestinal: denies: abdominal pain, vomiting, diarrhea, constipation Genitourinary (Female): reports: vaginal pain, contractions (over 1 hr apart). denies: dysuria, hematuria, vaginal discharge, vaginal bleeding Musculoskeletal: denies: pain, tenderness Neurologic: reports: headache (intermittent, not changing throughout ) . denies: weakness Integumentary: denies: itching, rash, lesions FMR OB H&P: Vital Signs - Maternal Vital signs: Vital Signs - First Documented Temp Pulse Resp BP Pulse Ox 99.1 F 90 18 127/70 97 02/12/19 17:51 02/12/19 17:51 02/12/19 17:51 02/12/19 17:51 02/12/19 17:51 - Heart Tones Baseline: 145 Variability: moderate Acceleration: present Deceleration: absent Category: category 1 FMR OB H&P: Physical Exam - Physical Exam General: NAD, awake, alert and oriented HEENT: normocephalic and atraumatic, EOMI, grossly normal vision, grossly normal hearing Neck: FROM, no JVD Heart: RRR, normal S1/S2, pulses present, no edema General: CTAB, no respiratory distress Abdomen: soft, gravid, non-tender Musculoskeletal: normal gait and station, FROM in all four extremities Neurological: cranial nerves II through XII intact, no focal deficit Skin: no rash, capillary refill <2 seconds Lymphatic: no unusual bruising or bleeding Psychiatric: intact recent and remote memory, good judgement and insight FMR OB H&P: Results - Labs Lab results: Laboratory Results - last 24 hr 02/12/19 02/12/19 02/12/19 19:31 19:35 19:35 WBC 14.3 H RBC 4.19 L Hgb 11.9 L Hct 35.4 L MCV 84.4 MCH 28.5 MCHC 33.8 RDW 13.1 Plt Count 239 MPV 7.9 Neutrophils % 72.8 Lymphocytes % 18.4 L Monocytes % 6.6 Eosinophils % 1.9 Basophils % 0.3 Neutrophils # 10.4 H Lymphocytes # 2.6 Monocytes # 0.9 H Eosinophils # 0.3 Basophils # 0.1 Sodium 137 Potassium 3.8 Chloride 107 Carbon Dioxide 20 L Anion Gap 14 BUN 10 Creatinine 0.62 Estimated GFR (MDRD) Greater than 90 Glucose 95 Calcium 9.1 Total Bilirubin 0.2 AST 17 ALT 15 Alkaline Phosphatase 138 H Serum Total Protein 7.6 Albumin 3.7 Globulin 3.9 H Albumin/Globulin Ratio 0.9 L U Random Total Protein 31 H Urine Creatinine 164.06 H FMR OB H&P: A/P - Problem List (1) Elevated blood pressure reading without diagnosis of hypertension Status: Acute Code(s): R03.0 - ELEVATED BLOOD-PRESSURE READING, W/O DIAGNOSIS OF HTN (2) Elderly multigravida, currently in third trimester Status: Acute Code(s): O09.523 - SUPERVISION OF ELDERLY MULTIGRAVIDA, THIRD TRIMESTER (3) History of pre-eclampsia Status: Acute Code(s): Z87.59 - PERSONAL HISTORY OF COMP OF PREG, CHLDBRTH AND THE PUERP (4) History of delivery Status: Acute Code(s): Z87.51 - PERSONAL HISTORY OF PRE-TERM LABOR Disposition: Elevated BP - Reported home readings - Recommended comparing home cuff to clinic cuff - Normal pressures here throughout visit - Urine protein/cr ratio of 0.18 - Not pre-eclamptic - No regular contractions here - Reassuring FHT, Cat 1 strip - Pt has follow up appointment tomorrow with MFM Discussion: Date/Time: 02/12/19 4131 This H&P was discussed with Dr. Anand and Dr. Sterling who agree with the above documentation and plan. Signature: Jaiden Chaudhry D.O. PGY1 Addendum - Attending - Attending Attestation Date/Time: 02/12/19 1905 I personally evaluated the patient and discussed the management with Dr. Chaudhry. I agree with the History, Examination, Assessment and Plan documented above.
== END 2019-02-12 20:20 | disposition home or self-care (01) ==
LOC: L&D/OP 17:35
PROVIDERS: ATTEND Obstetrics & Gynecology
DX: O99.89 Other specified diseases and conditions complicating pregnancy, childbirth and the puerperium (principal); R03.0 Elevated blood-pressure reading, without diagnosis of hypertension; O99.283 Endocrine, nutritional and metabolic diseases complicating pregnancy, third trimester; E03.9 Hypothyroidism, unspecified; O09.523 Supervision of elderly multigravida, third trimester; Z3A.36 36 weeks gestation of pregnancy; Z79.82 Long term (current) use of aspirin; Z79.899 Other long term (current) drug therapy; Z87.51 Personal history of pre-term labor; Z87.59 Personal history of other complications of pregnancy, childbirth and the puerperium
CPT/HCPCS: 36415; 80053; 82570; 84156; 85025; 99283

== ENCOUNTER 2019-02-28 19:28 | Inpatient (IN) | payer MEDICAID, OTHER, SELFPAY ==
[~2019-02-28 19:28] MED LIST: Bupivacaine 0.25% HCL 30 ML VIAL ONE; Bupivacaine/Epinephrine 0.25% 30 ML VIAL ONE
[2019-02-28 20:08] VITALS: BMI 39.8
[2019-02-28] MEDS ORDERED: Promethazine HCl 25 MG/ML VIAL IM PRN (20:10)
[2019-02-28] MEDS ORDERED: Acetaminophen 500 MG TAB PO PRN (20:10)
[2019-02-28] MEDS ORDERED: hydrALAZINE 20 MG/ML VIAL SLOW IVP PRN (20:10)
[2019-02-28] MEDS ORDERED: Lidocaine 1% (PF) 30 ML VIAL SC PRN (20:10)
[2019-02-28] MEDS ORDERED: Ondansetron PF 4 MG/2 ML Vial IVP PRN (20:10)
[2019-02-28] MEDS ORDERED: NS / Oxytocin 40 units/1000ml 1,000 ML IV PRN (20:10)
[2019-02-28] MEDS ORDERED: Diphenoxylate HCl/Atropine Tablet PO PRN ×2 (20:17)
[2019-02-28] MEDS ORDERED: Ibuprofen 800 MG TAB PO PRN (20:17)
[2019-02-28] MEDS ORDERED: Methylergonovine 0.2 MG/ML VIAL IM PRN (20:17)
[2019-02-28] MEDS ORDERED: Misoprostol 200 MCG TAB PR PRN (20:17)
[2019-02-28] MEDS ORDERED: Carboprost 250 MCG/ML AMP IM PRN (20:17)
[2019-02-28] MEDS: Lactated Ringer's 1,000 ML IV SCH (20:30)
--- NOTE | 2019-02-28 20:34 | PDOC.FPROB ---
FMR OB H&P: HPI - History of Present Illness Chief Complaint: IOL 2/2 AMA, Hypothyroidism. Indentification: 39 yo [id number] @ 39.0w by LMP/8.3wk sono History of Present Illness: 39 yo [id number] @ 39.0w by LMP/8.3wk sono presents for medically indicated IOL for hypothyroidism and advanced maternal age. Pt currently states she is only feeling contractions intermittently. Good movement. No LOF, vaginal bleeding, or change in vaginal discharge, or dysuria. Primary Care Physician: Cristóbal FMR OB H&P: Current - Care : 5 Para: 3013 Gestational age: 39 Due date: 03/07/19 Dating Criteria: LMP/8.3 wk sono Course/Complications: Autoimmune thyroiditis - OB Labs Blood type: O RH: positive Antibody Screen: negative HIV: negative RPR: negative HepBsAg: negative Rubella: immune Quad screen: unknown Urine drug screen: not done Gonorrhea: negative Chlamydia: negative Pap Smear: 07/30/18 NILM/HPV neg 1 hour gtt: 2 hr GTT fasting 91, 1 hr 150, 2 hr 143 A1c: 5.7 GBS: negative H&H: Hgb 10.3->11.2->10.6 Additional labs: TSH 7.9->7.5->2.7->4.1->1.470 Thyroid Peroxidase +, Thyroid Globulin + Ferritin 15 01/01 Trop <.01 01/01 BNP <50 - First Trimester Ultrasound First trimester: 8.3 week sono. JESSICA c/w LMP. No abnormalities - Anatomy Survey Anatomy survey: 10/23/18 20 weeks. Normal anatomy EFW 21% - Additional Ultrasound Additional: 11/20/18 24.3 weeks ECHO and anatomy normal. EFW 30% 01/24/19 32.3 wks Hadlock 13%, Femur growth <1% 02/01/19 MFM EFW <3% BPP 11/2202/07/19 MFM EFW Hadlock 21% (resolved) recommend induction 38-39 weeks FMR OB H&P: History - Past Medical History PMH: Autoimmune hypothyroidism, Levothyroxine 150 mcg - OB History OB History: Hx Pre E w/ severe features in 2011. 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 Pap ealier this year normal. HPV negative - Surgical History Sx History: I&D on R. arm - Social History Social History: Denies any smoking, alcohol or illicit drug use. - Family History Family History: DM, HTN, [place] FMR OB H&P: Medications - Current Home Medications: Medication Instructions Recorded Confirmed Type Levothyroxine Sodium 1 tab PO DAILY 12/30/18 02/28/19 History Pnv73/Iron,Gluc/Folic/Dss/Dha 1 tab PO DAILY 12/30/18 02/28/19 History [Citranatal Assure Combo Pack] Aspirin Chewable 81 mg PO DAILY 02/12/19 02/28/19 History Allergies/Adverse Reactions: Allergies Allergy/AdvReac Type Severity Reaction Status Date / Time No Known Drug Allergies Allergy Verified 02/28/19 20:10 FMR OB H&P: ROS - Review of Systems General: denies: fever/chills, weight/appetite/sleep changes, night sweats Eyes: denies: vision changes, double vision, scotomas ENT: denies: nasal congestion, rhinorrhea, sore throat Cardiovascular: denies: chest pain, edema Respiratory: denies: cough, congestion, shortness of breath Gastrointestinal: denies: abdominal pain, indigestion, cramping, nausea, vomiting Genitourinary (Female): reports: contractions (intermittent). denies: incontinence, dysuria, vaginal discharge, vaginal pain, vaginal bleeding Neurologic: denies: numbness, seizures Integumentary: denies: itching, rash FMR OB H&P: Vital Signs - Maternal Vital signs: BP 130s-140s/80s. 98% on RA. - Heart Tones Baseline: 150 Variability: moderate Acceleration: present Deceleration: absent Category: category [address] [place] contractions every: intermittent FMR OB H&P: Physical Exam - Physical Exam General: NAD, awake, alert and oriented HEENT: EOMI, MMM, conjunctiva clear Neck: supple, trachea midline Heart: RRR, normal S1/S2, no murmurs/rubs/gallops, pulses present, no edema General: CTAB, no respiratory distress, good air movement, no rales/rhonchi, no wheezing Abdomen: soft, gravid, non-tender, bowel sound present Musculoskeletal: normal gait and station Skin: no rash Lymphatic: no unusual bruising or bleeding - Pelvic Exam SVE: /-1 Webb score: 7 Membranes: intact FMR OB H&P: A/P - Problem List (1) Anemia affecting Current Visit: Yes Status: Acute Code(s): O99.019 - ANEMIA COMPLICATING , UNSPECIFIED TRIMESTER (2) Autoimmune hypothyroidism Current Visit: Yes Status: Acute Code(s): E06.3 - AUTOIMMUNE THYROIDITIS (3) Encounter for induction of labor Current Visit: Yes Status: Acute Code(s): Z34.90 - ENCNTR FOR SUPRVSN OF NORMAL , UNSP, UNSP TRIMESTER (4) Elderly multigravida, currently in third trimester Current Visit: No Status: Acute Code(s): O09.523 - SUPERVISION OF ELDERLY MULTIGRAVIDA, THIRD TRIMESTER Disposition: 39 yo [id number] @ 39.0w by LMP/8.3wk sono here for medically indicated induction 2/ 2 Autoimmune Hypothyroidism AMA, and concern for IUGR #IOL - /, Webb 7 - Favorable to start pit - GBS negative - Cat 1 strip. FHR 130. Accels, no deccels, mod variability. - Will continue to check and continue current plan of induction #Autoimmune Hypothyroidism - TSH 1.368 on admission - Continue Levothyroxine 150 mcg #Elevated BP w/o dx of Hypertension - few BP elevated above 130 and 140. No severe range pressures. Has hx of Pre-E w/ severe features in prior - Will order CBC, CMP, Urine Pr/Cr to assess for PreE. #Anemia of - Hgb 11.6 stable. There was concern for IUGR during but resolved at most recent [facility] appointment on 02/07. Hadlock 21% Diet: NPO IVF: LR @125cc/hr Dispo: Admit for medically indicated IOL. Webb favorable, begin pit. Cont to monitor closely with routine checks. Discussion: Date/Time: 02/28/192031 This H&P was discussed with Dr. Clarke and Dr. Bertrand who agree with the above documentation and plan. Addendum - Attending - Attending Attestation Date/Time: 03/01/19851 I personally evaluated the patient and discussed the management with Dr. Díaz I agree with the History, Examination, Assessment and Plan documented above with any addition or exceptions noted below.
[2019-02-28 21:23] LABS: Hemoglobin 11.5 g/dL (12.0-16.0); Mean Corpuscular HGB CONC 33.3 g/dL (32.0-36.0); Mean Corpuscular Hemoglobin 28.1 pg (27.0-31.0); Mean Corpuscular Volume 84.5 fL (78.0-98.0); Platelet Count 194 thou/uL (130-400); RBC Distribution Width 13.7 % (11.5-14.5); Red Blood Cell (RBC) Count 4.09 mill/uL (4.20-5.40); White Blood Cell (WBC) Count 11.2 thou/uL (4.8-10.8)
[2019-02-28] MEDS ORDERED: NS w/ Oxytocin 10 units 500 ML IV SCH ×2 (22:00)
[2019-02-28 22:02] LABS: Syphilis Antibody Nonreactive (Nonreactive); Syphilis Antibody Index 0.04 S/CO (<1.00 Non-Reactive)
[2019-02-28 22:05] LABS: #Eosinphils 0.1 thou/uL (0.0-0.7); #Lymphocytes 2.2 thou/uL (1.20-3.40); #Neutrophils 7.7 thou/uL (1.40-6.50); %Basophils 0.2 % (0.0-1.0); %Lymphocytes 20.2 % (21.0-51.0); %Monocytes 8.7 % (0.0-10.0); %Neutrophils 69.9 % (42.0-75.0); Hemoglobin 11.6 g/dL (12.0-16.0); Mean Corpuscular HGB CONC 33.5 g/dL (32.0-36.0); Mean Corpuscular Hemoglobin 28.7 pg (27.0-31.0); Mean Corpuscular Volume 85.6 fL (78.0-98.0); Mean Platelet Volume 9.1 fL (7.4-10.4); Platelet Count 199 thou/uL (130-400); Red Blood Cell (RBC) Count 4.04 mill/uL (4.20-5.40); Thyroid Stimulating Hormone 1.3688 uIU/mL (0.35-4.94)
[2019-02-28 22:16] LABS: ALT (SGPT) 14 U/L (8-55); AST (SGOT) 21 U/L (5-34); Albumin 3.6 g/dL (3.5-5.0); Alkaline Phosphatase 156 U/L (40-110); Anion Gap 16 mmol/L (10-20); BUN (Urea Nitrogen) 12 mg/dL (7.0-18.7); Bilirubin, Total 0.2 mg/dL (0.2-1.2); Calc. Creatinine Clearance 185 mL/min (70-130); Carbon Dioxide 16 mmol/L (22-29); Chloride 107 mmol/L (98-107); Estimated GFR-MDRD Greater than 90; Globulin 3.3 g/dL (2.4-3.5); Glucose 103 mg/dL (70-105); Potassium 4.1 mmol/L (3.5-5.1); Protein, Total 6.9 g/dL (6.0-8.3); Sodium 135 mmol/L (136-145); Uric Acid 3.7 mg/dL (2.6-6.0)
[2019-02-28 22:53] LABS: HBSAg Index 0.12 S/CO (0-0.99); Hep B Surf Ag NonReactive S/CO (NonReactive)
[2019-03-01 01:37] LABS: Creatinine, Urine 22.41 mg/dL (47-110); Protein, Urine Random Quant Less than 10 mg/dL (1-14)
--- NOTE | 2019-03-01 02:40 | PDOC.LDPN ---
Labor & Delivery Progress Note - Subjective Subjective: painful contractions - Objective Vital signs reviewed and normal: yes General: NAD, breathing through contractions Uterine fundus: non tender SVE: 2:30 Dilation: 3 Effacement: 50% Station: -1 FHT: category 1, variability present [place] contractions every: 5-6 minutes - Assessment (1) Elderly multigravida, currently in third trimester Code(s): O09.523 - SUPERVISION OF ELDERLY MULTIGRAVIDA, THIRD TRIMESTER Current Visit: No Status: Acute (2) History of pre-eclampsia Code(s): Z87.59 - PERSONAL HISTORY OF COMP OF PREG, CHLDBRTH AND THE PUERP Current Visit: No Status: Acute (3) Autoimmune hypothyroidism Code(s): E06.3 - AUTOIMMUNE THYROIDITIS Current Visit: Yes Status: Acute (4) Anemia affecting Code(s): O99.019 - ANEMIA COMPLICATING , UNSPECIFIED TRIMESTER Current Visit: Yes Status: Acute (5) Encounter for induction of labor Code(s): Z34.90 - ENCNTR FOR SUPRVSN OF NORMAL , UNSP, UNSP TRIMESTER Current Visit: Yes Status: Acute Plan: continue plan of care, pitocin for augmentation -: 39 yo [id number] @ 39.1w by LMP/8.3wk sono here for medically indicated induction 2/ 2 Autoimmune Hypothyroidism AMA, and concern for IUGR IOL -On pitocin rate of 6. -GBS (-) -SVE @ 2:30 3/50/-1. Cat 1 strip. FHR 130 -Pt having some pain. -Will continue to check and continue current plan of induction Autoimmune Hypothyroidism -TSH 1.368 on admission -Continue Levothyroxine 150 mcg Elevated BP w/o dx of Hypertension -Pt had a few BP elevated above 130 and 140. No severe range pressures. Has hx of Pre-E w/ severe features in prior -CBC and CMP reviewed. No abnormalities noted. Urine Pr/Cr ratio unable to calculate as protein too low. Anemia of -Hgb 11.6 stable. There was concern for IUGR during but resolved at most recent [facility] appointment on 02/07. Hadlock 21%
[2019-03-01] MEDS: Butorphanol Tartrate 1 MG/ML VIAL SLOW IVP PRN ×2 (04:20→05:30)
--- NOTE | 2019-03-01 04:54 | PDOC.LDPN ---
Labor & Delivery Progress Note - Subjective Subjective: painful contractions, vaginal pressure - Objective Vital signs reviewed and normal: yes General: NAD, breathing through contractions Uterine fundus: non tender SVE: 445 Dilation: 4 Effacement: 75% Station: -1 FHT: category 2, late decelerations (Had 1 late decel but has since recovered), variability present [place] contractions every: Pt moving around hard to see on monitor Other exam findings: Bag intact - Assessment (1) Elderly multigravida, currently in third trimester Code(s): O09.523 - SUPERVISION OF ELDERLY MULTIGRAVIDA, THIRD TRIMESTER Current Visit: No Status: Acute (2) History of pre-eclampsia Code(s): Z87.59 - PERSONAL HISTORY OF COMP OF PREG, CHLDBRTH AND THE PUERP Current Visit: No Status: Acute (3) Autoimmune hypothyroidism Code(s): E06.3 - AUTOIMMUNE THYROIDITIS Current Visit: Yes Status: Acute (4) Anemia affecting Code(s): O99.019 - ANEMIA COMPLICATING , UNSPECIFIED TRIMESTER Current Visit: Yes Status: Acute (5) Encounter for induction of labor Code(s): Z34.90 - ENCNTR FOR SUPRVSN OF NORMAL , UNSP, UNSP TRIMESTER Current Visit: Yes Status: Acute Plan: continue plan of care, pitocin for augmentation -: 39 yo [id number] @ 39.1w by LMP/8.3wk sono here for medically indicated induction 2/ 2 Autoimmune Hypothyroidism AMA, and concern for IUGR IOL -On pitocin rate of 6. -GBS (-) -SVE @ 4:45 /-1. Cat 1-Cat 2 strip. FHR 130. Had 1 late decel but has since recovered. Good variability and accels noted -Pt having some pain. -Will continue to check and continue current plan of induction Autoimmune Hypothyroidism -TSH 1.368 on admission -Continue Levothyroxine 150 mcg Elevated BP w/o dx of Hypertension -Pt BP range from 120-130. No severe range pressures. Has hx of Pre-E w/ severe features in prior -CBC and CMP reviewed. No abnormalities noted. Urine Pr/Cr ratio unable to calculate as protein too low. Anemia of -Hgb 11.6 stable.
[2019-03-01] MEDS ORDERED: Fentanyl 4 mcg/Bup 0.1% Cadd 100 ML ONE (05:49)
[2019-03-01] MEDS ORDERED: diphenhydrAMINE 50 MG/ML VIAL IVP PRN (06:27)
[2019-03-01] MEDS ORDERED: Promethazine HCl 25 MG/ML VIAL IM PRN (06:27)
[2019-03-01] MEDS ORDERED: Naloxone HCl 0.4 mg/ml Vial IVP PRN ×2 (06:27)
[2019-03-01] MEDS ORDERED: Lactated Ringer's 500 ML IV PRN (06:27)
[2019-03-01] MEDS ORDERED: ePHEDrine/0.9% NaCl/PF SYRINGE 50 mg/10 ml SLOW IVP PRN (06:27)
[2019-03-01] MEDS ORDERED: Ondansetron PF 4 MG/2 ML Vial IVP PRN ×2 (06:27→09:23)
[2019-03-01] MEDS ORDERED: Acetaminophen 325 MG TAB PO PRN (06:27)
[2019-03-01] MEDS ORDERED: Communication Order-Pharmacy FS SCH (06:30)
[2019-03-01] MEDS ORDERED: Fentanyl 4 mcg/Bupivacaine 0.1% Cassette 100 ML EPIDURAL SCH (06:30)
[2019-03-01] MEDS: NS / Oxytocin 40 units/1000ml 1,000 ML IV SCH ×2 (07:05→10:21)
--- NOTE | 2019-03-01 07:38 | PDOC.OPDEL ---
Addendum entered and electronically signed by Ja Ambrocio DO 03/01/19 08: 43: I, Ja Ambrocio DO was presents for the entire delivery and agree with the documentation by Dr. Díaz with exceptions noted below: - Placenta delivered via linton with tailing products of conception removed with ring forceps, intact. - Small periurethral laceration bilateral, hemostatic. - Otherwise uncomplicated @ 0653, TAGA M @ 0653 APGARS 8/9. Original Note: OB Operative/Delivery Note Delivery Dr/Surgeon: Arjun/Cristóbal/Jerzy Pre-Delivery Diagnosis: active labor, medically indicated induction Procedure/Post Delivery Dx: spontaneous vaginal delivery Weeks gestation: 39 (39.1) Anesthesia: epidural - Findings A Sex: male - 1 min: 8 - 5 min: 9 - Additional Findings/Plan Placenta delivered: spontaneous Repaired Obstetrical Laceration: none Estimated blood loss: 300 Compilations/Other Findings: Procedure: Spontaneous Vaginal Delivery Anesthesia: epidural EBL: 300 ml Pre-op Diagnosis: 1. Term intrauterine in labor 2. Hx of macrosomia, hx of preeclampsia, hx of infections Post-op Diagnosis: 1. Term intrauterine , delivered 2. Autoimmune Hypothyroidism 3. Elevated BP without diagnosis of HTN 4. Anemia of Indications: A 39y/o female presents to L&D for induction due to autoimmune hypothyroidism, AMA, and Elevated BP. Delivery Note: This is 39yo F @ 39.1wks by 8.3wk sono who delivered a viable M infant at 0653. Immediately prior to delievery baby did experience recurrent decels. Mother also had 1 severe range BP followed by multiple more during epidural placement and delivery. A vigorous male was delivered over an intact perineum in the occipitoanterior position. Anterior Shoulder and then remainder of the body delivered. No nuchal cord. The head was held down and mouth and nares were bulb suctioned. Cord clamped after delayed cord clamping and cut and cord blood and cord blood gas collected. Placenta delivered intact in the Linton presentation with a 3 vessel cord noted. Placenta was delivered with tailing placenta. Fundal massage was performed and the fundus was firm. The cervix and vagina were inspected and found to be free of lacerations. Infant went to nursery in good condition for routine care. Apgars were 8 /9 at 1 & 5 minutes, respectively. Patient tolerated delivery well and went to after routine recovery/care. Post delivery plan: routine recovery Addendum - Attending - Attending Attestation Date/Time: 03/01/19 3659 I personally evaluated the patient and discussed the management with Dr. Díaz/ Cristóbal I agree with the History, Examination, Assessment and Plan documented above with any addition or exceptions noted below. experienced recurrent decelerations immediately prior to delivery. Delivered without complication with good APGARs. Arterial cord gas pH 7.1. Expectant management at this time. Patient had a few elevated BP immediately prior to delivery. Will monitor on L&D for 2-3 hours. If BP WNL, transfer to floor.
[2019-03-01 07:39] LABS: Actual Bicarbonate (HCO3a) 22.1 mEq/L (22-28); Analyzer IN Cardio OR; Base Excess (BEa) -8.5 mEq/L (-2.0 to +3.0)
[2019-03-01] MEDS ORDERED: Milk Of Magnesia 30 ML UDCUP PO PRN (09:23)
[2019-03-01] MEDS ORDERED: Bisacodyl 10 MG SUPP PR PRN (09:23)
[2019-03-01] MEDS ORDERED: hydrALAZINE 20 MG/ML VIAL SLOW IVP PRN (09:23)
[2019-03-01] MEDS ORDERED: Lanolin Ointment 7 GM TUBE TOP PRN (09:23)
[2019-03-01] MEDS: Misoprostol 100 MCG TAB VAG SCH ×3 (10:08→18:07)
[2019-03-01] MEDS: Lactated Ringer's 1,000 ML IV SCH ×2 (10:08→14:29)
[2019-03-01] MEDS: Ibuprofen 800 MG TAB PO SCH ×2 (10:19→17:32)
[2019-03-01] MEDS: Docusate Calcium (SURFAK) 240 MG CAP PO SCH ×2 (10:20→20:52)
[2019-03-01] MEDS: Prenatal Vitamin 1 TAB PO SCH (10:20)
[2019-03-02] MEDS: Ibuprofen 800 MG TAB PO SCH ×3 (01:12→19:29)
[2019-03-02] MEDS: Misoprostol 100 MCG TAB VAG SCH ×5 (01:17→17:30)
[2019-03-02] MEDS: Lactated Ringer's 1,000 ML IV SCH ×3 (01:18→12:41)
[2019-03-02 04:58] LABS: Hemoglobin 10.2 g/dL (12.0-16.0); Mean Corpuscular HGB CONC 34.1 g/dL (32.0-36.0); Mean Corpuscular Volume 85.1 fL (78.0-98.0); Mean Platelet Volume 8.3 fL (7.4-10.4); Platelet Count 170 thou/uL (130-400); RBC Distribution Width 13.9 % (11.5-14.5); Red Blood Cell (RBC) Count 3.51 mill/uL (4.20-5.40); White Blood Cell (WBC) Count 13.4 thou/uL (4.8-10.8)
--- NOTE | 2019-03-02 05:14 | PDOC.PP ---
Post Progress Note Post Day #: 1 Subjective: Doing very well this morning. Ambulating without difficulty. Voiding without difficulty. +BM. Lochia decreased and less than normal period. Tolerating PO well. Pain well-controlled with Motrin. Denies any fever/chills, n/v, CP, SOB, LE edema. In good spirits. Would like to stay one more night and be discharged tomorrow morning. Mom is trying to breastfeed, milk has not came in yet, but is trying. PO intake tolerated: yes Flatus: yes Ambulation: yes Vital Signs (12 hours) Temp Pulse Resp BP BP Pulse Ox 03/02/19 01:23 98.1 F 65 109/56 L 03/01/19 22:26 98.6 F 03/01/19 20:00 99.5 F 89 16 118/56 L 97 03/01/19 17:20 98.6 F 76 20 117/56 L 100 Weight Weight 102.058 kg - Physical Examination General: NAD (ambulating in room) Cardiovascular: no m/r/g, RRR Respiratory: clear to auscultation bilaterally, non-labored breathing Abdominal: + bowel sounds, lochia (minimal), no distention, appropriately TTP Fundus firm & at: below umbilicus Extremities: negative homans (B) Neurological: no gross focal deficits Psychiatric: A&Ox3, normal affect Result Diagrams: 03/02/19 04:38 02/28/19 21:09 Additional Labs: Post Labs Blood Type O POSITIVE 02/28/19 21:09 Hep Bs Antigen NonReactive S/CO (NonReactive) 02/28/19 21:09 (1) Anemia affecting Code(s): O99.019 - ANEMIA COMPLICATING , UNSPECIFIED TRIMESTER Status : Acute (2) Autoimmune hypothyroidism Code(s): E06.3 - AUTOIMMUNE THYROIDITIS Status: Acute (3) Encounter for induction of labor Code(s): Z34.90 - ENCNTR FOR SUPRVSN OF NORMAL , UNSP, UNSP TRIMESTER Status: Acute (4) Elderly multigravida, currently in third trimester Code(s): O09.523 - SUPERVISION OF ELDERLY MULTIGRAVIDA, THIRD TRIMESTER Status : Acute - Assessment/Plan 39 yo [id number] --> 4 who delivered a TAGA baby boy @ 39.1w by LMP/8.3wk sono by , PPD #1 #PPD #1 - TAGA baby boy @ 0653 on 03/01/19 by @ 39.1 - Doing very well, ambulating, tolerating PO, voiding and stooling - Pain well-controlled with Motrin - Would like to stay a second night, will plan for d/c in plan - Breastfeed, minimal milk production, will place consultation, encouraged breast feed - desires circ for baby #Autoimmune Hypothyroidism -TSH 1.368 on admission -Continue Levothyroxine 150 mcg #Elevated BP w/o dx of Hypertension, resolved - Pt BP post range from 110-120. No severe range pressures. Has hx of Pre -E w/ severe features in prior - CBC and CMP reviewed. No abnormalities noted. Urine Pr/Cr ratio unable to calculate as protein too low. #Anemia of - Hgb 11.6 pre delivery and 10.2 post delivery - Will cont iron Diet: Regular VTE: Ambulate IVF: SL Dispo: PPD#1, continue routine care, anticipate discharge tomorrow. Addendum - Attending - Attending Attestation Date/Time: 03/02/19 1055 I personally evaluated the patient and discussed the management with Dr. Franny Díaz I agree with the History, Examination, Assessment and Plan documented above with any addition or exceptions noted below - Patient without complaints. Afebrile VSS. A/P: 1) PPD#1 s/p - Continue routine care. Anticipate d/c home tomorrow.
[2019-03-02] MEDS ORDERED: Ferrous Sulfate 325 MG TAB PO SCH (07:30)
[2019-03-02] MEDS ORDERED: Acetaminophen 500 MG TAB PO SCH (07:45)
[2019-03-02] MEDS: Prenatal Vitamin 1 TAB PO SCH (07:56)
[2019-03-02] MEDS: Docusate Calcium (SURFAK) 240 MG CAP PO SCH (07:57)
[2019-03-02] MEDS ORDERED: Adacel (T-DAP) 0.5 ML SYRINGE IM ONE (09:00)
[2019-03-03] MEDS: Ibuprofen 800 MG TAB PO SCH ×2 (01:13→09:32)
[2019-03-03] MEDS: Lactated Ringer's 1,000 ML IV SCH ×3 (01:14→11:39)
[2019-03-03] MEDS: Docusate Calcium (SURFAK) 240 MG CAP PO SCH ×2 (01:14→09:32)
[2019-03-03] MEDS: Misoprostol 100 MCG TAB VAG SCH ×4 (01:14→10:36)
--- NOTE | 2019-03-03 08:32 | PDOC.PP ---
Post Progress Note Post Day #: 2 Subjective: She is doing well. She has cramping lower abd pain improved with Motrin. Little lochia. She is eating and passing gas. No BM. PO intake tolerated: yes Flatus: yes Ambulation: yes Vital Signs (12 hours) Temp Pulse Resp BP Pulse Ox 03/03/19 07:14 98.1 F 72 16 137/64 98 03/02/19 21:00 98.2 F 71 18 104/52 L 100 Weight Weight 102.058 kg - Physical Examination General: NAD Cardiovascular: no m/r/g, RRR Respiratory: clear to auscultation bilaterally Abdominal: + bowel sounds, lochia, no distention, appropriately TTP Neurological: no gross focal deficits Psychiatric: A&Ox3, normal affect Result Diagrams: 03/02/19 04:38 02/28/19 21:09 Additional Labs: Post Labs Blood Type O POSITIVE 02/28/19 21:09 Hep Bs Antigen NonReactive S/CO (NonReactive) 02/28/19 21:09 (1) Encounter for induction of labor Code(s): Z34.90 - ENCNTR FOR SUPRVSN OF NORMAL , UNSP, UNSP TRIMESTER Status: Acute (2) Anemia affecting Code(s): O99.019 - ANEMIA COMPLICATING , UNSPECIFIED TRIMESTER Status : Acute (3) Autoimmune hypothyroidism Code(s): E06.3 - AUTOIMMUNE THYROIDITIS Status: Acute (4) Elevated blood pressure reading without diagnosis of hypertension Code(s): R03.0 - ELEVATED BLOOD-PRESSURE READING, W/O DIAGNOSIS OF HTN Status : Acute - Assessment/Plan 39 yo [id number] --> 4 who delivered a TAGA baby boy @ 39.1w by LMP/8.3wk sono by , PPD #1 1. PPD #2 - TAGA baby boy @ 0653 on 03/01/19 by @ 39.1 - Doing very well, ambulating, tolerating PO, voiding and stooling - Pain well-controlled with Motrin - Would like to stay a second night, will plan for d/c in plan - Breastfeed, minimal milk production, will place consultation, encouraged breast feed - desires circ for baby 2. Autoimmune Hypothyroidism -TSH 1.368 on admission -Continue Levothyroxine 150 mcg 3. Elevated BP w/o dx of Hypertension, resolved - Pt BP post range from 110-120. No severe range pressures. Has hx of Pre -E w/ severe features in prior - CBC and CMP reviewed. No abnormalities noted. Urine Pr/Cr ratio unable to calculate as protein too low. 4. Anemia of - Hgb 11.6 pre delivery and 10.2 post delivery - Will cont iron Diet: Regular VTE: Ambulate IVF: SL Dispo: PPD#2, continue routine care, anticipate discharge today. Addendum - Attending - Attending Attestation Date/Time: 03/03/19 7372 I personally evaluated the patient and discussed the management with Dr. Pineda Díaz I agree with the History, Examination, Assessment and Plan documented above with any addition or exceptions noted below - Patient without complaints. Afebrile VSS. A/P: 1) PPD#2 s/p - doing well. D/c home today.
[2019-03-03] MEDS: Prenatal Vitamin 1 TAB PO SCH (09:32)
[2019-03-03 11:58] VITALS: BP 116/56; TEMP 98
--- NOTE | 2019-03-08 05:42 | PQF ---
SAP Lead Database Administrator Crystal Reports Winform ViewerCIBOLA GENERAL HOSPITALKILLIAN PINO MD *r [id number] CLINICAL DOCUMENTATION CLARIFICATION FORM: POST DISCHARGE Addendum to original discharge summary date: ____ Late entry note date: __ DATE: 03/08/2019 ATTN: Alfredo Bertrand MD Please exercise your independent, professional judgment in responding to the clarification form. Clinical indicators are provided on the bottom of this form for your review Please check appropriate box(s): [ ] Acute blood loss anemia [ ] Post-op anemia related to acute blood loss [ ] Chronic Anemia: [ x ] Other diagnosis Anemia associated with . [ ] Unable to determine In addition, please specify: Present on Admission (POA): [x ] Yes [ ] No [ ] Unable to determine For continuity of documentation, please document condition throughout progress notes and discharge summary. Thank You. CLINICAL INDICATORS - SIGNS / SYMPTOMS / LABS HGB 11.5 on 02/28 and 10.2 on 03/02 - Documented in Laboratory HCT 34.6 on 02/28 and 29.9 on 03/02 - Documented in Laboratory BP 104/54 - Documented in Vital Signs Anemia of - Documented in PNs on 03/03 by Arjun Campoverde [employer] Autoimmuno hypothyroidism Elevated Blood pressure without HTN Spontaneous Vaginal Delivery TREATMENTS: Continue Iron - Documented in PNs on 03/03 by Arjun Campoverde Ferrous sulfate 325 mg (This form is maintained as a part of the permanent medical record) SAP Lead Database Administrator [employer] Winform [id number] [employer]. All Rights Reserved [email or web address] [not provided] MTDD
== END 2019-03-03 14:35 | disposition home or self-care (01) | DRG 807 ==
LOC: L&D 19:28 → 3SW 03-01 10:00
PROVIDERS: ADMIT Family Medicine; ATTEND Family Medicine
PROC: 3E033VJ Introduction of Other Hormone into Peripheral Vein, Percutaneous Approach (ICD-10-PCS; principal; 2019-02-28)
PROC: 10E0XZZ Delivery of Products of Conception, External Approach (ICD-10-PCS; 2019-02-28)
DX: O99.284 Endocrine, nutritional and metabolic diseases complicating childbirth (principal); Z37.0 Single live birth; E06.3 Autoimmune thyroiditis; O99.02 Anemia complicating childbirth; D64.9 Anemia, unspecified; O77.0 Labor and delivery complicated by meconium in amniotic fluid; Z3A.40 40 weeks gestation of pregnancy
CPT/HCPCS: 36415; 80053; 82570; 82805; 84156; 84443; 84550; 85027; 86780; 86850; 86900; 86901; 87340; J0595; J2590; S0020

== ENCOUNTER 2020-03-13 13:53 | Emergency (ER) | payer MEDICAID, OTHER, SELFPAY ==
--- NOTE | 2020-03-13 14:40 | RAD ---
PORTABLE CHEST ONE VIEW: 03/13/20 at 2:32 p.m. HISTORY: Cough. COMPARISON: 07/30/17. FINDINGS: The lungs are well expanded without focal areas of consolidation, pneumothoraces or pleural effusions . The heart size is normal. IMPRESSION: No acute process. POS: TERESAA
[2020-03-13] MEDS ORDERED: Dexamethasone 10 MG/ML VIAL ONE (14:48)
== END 2020-03-13 15:38 | disposition home or self-care (01) ==
LOC: ERS 13:53
DX: J18.9 Pneumonia, unspecified organism (principal); F17.210 Nicotine dependence, cigarettes, uncomplicated
CPT/HCPCS: 71045; J1100

== ENCOUNTER 2020-09-24 22:53 | Emergency (ER) | payer SELFPAY ==
[~2020-09-24 22:53] MED LIST changes: -Bupivacaine 0.25% HCL 30 ML VIAL ONE; -Bupivacaine/Epinephrine 0.25% 30 ML VIAL ONE; +Iopamidol-370 76% 500 ML 1 ML ONE
[2020-09-24] MEDS ORDERED: Acetaminophen 500 MG TAB ONE (23:00)
[2020-09-24 23:15] LABS: Bilirubin Negative (Negative); Blood, Urine Small (Negative); Clarity Clear (Clear); Glucose, Urine (Dipstick) Negative (Negative); Ketone, Urine Negative (Negative); Leukocyte Negative (Negative); Nitrite Negative (Negative); Protein, Urine (Dipstick) Negative (Neg-Trace); Urobilinogen 0.2 mg/dL (Less than 2)
[2020-09-24] MEDS ORDERED: Ibuprofen 800 MG TAB ONE (23:21)
[2020-09-24 23:24] LABS: RBC/HPF 0-3 HPF (0-3); Renal Epithelial 0-3 HPF (None Seen); Squamous Epithelial 0-3 HPF (0-3); WBC/HPF 0-3 HPF (0-3)
[2020-09-24 23:29] LABS: Bacteria/HPF Rare-Few HPF (None Seen)
[2020-09-24 23:36] LABS: Hemoglobin 11.3 g/dL (12.0-16.0); Mean Corpuscular HGB CONC 31.5 g/dL (32.0-36.0); Mean Corpuscular Hemoglobin 21.4 pg (27.0-31.0); Mean Platelet Volume 11.1 fL (7.4-10.4); Platelet Count 266 thou/uL (130-400); RBC Distribution Width 15.6 % (11.5-14.5); Red Blood Cell (RBC) Count 5.29 mill/uL (4.20-5.40)
[2020-09-24 23:41] LABS: Albumin 4.6 g/dL (3.5-5.0); Anion Gap 14 mmol/L (10-20); Bilirubin, Total 0.4 mg/dL (0.2-1.2); Calcium 9.4 mg/dL (7.8-10.44); Carbon Dioxide 23 mmol/L (22-29); Chloride 102 mmol/L (98-107); Globulin 4.1 g/dL (2.4-3.5); Glucose 127 mg/dL (70-105); Potassium 3.7 mmol/L (3.5-5.1); Protein, Total 8.7 g/dL (6.0-8.3); Sodium 135 mmol/L (136-145)
[2020-09-24 23:42] LABS: Alkaline Phosphatase 94 U/L (40-110)
[2020-09-24 23:43] LABS: Calc. Creatinine Clearance 0 mL/min (70-130)
[2020-09-24 23:44] LABS: BUN (Urea Nitrogen) 9 mg/dL (7.0-18.7)
[2020-09-24 23:45] LABS: AST (SGOT) 20 U/L (5-34)
[2020-09-24 23:49] LABS: #Lymphocytes 1.5 thou/uL (1.20-3.40); #Monocytes 0.7 thou/uL (0.11-0.59); #Neutrophils 7.8 thou/uL (1.40-6.50); %Basophils 0.3 % (0.0-1.0); %Eosinophils 0.1 % (0.0-10.0); %Lymphocytes 14.9 % (21.0-51.0); %Monocytes 6.5 % (0.0-10.0); %Neutrophils 78.2 % (42.0-75.0); MDiff Complete? YES; Microcytosis SLIGHT = 6-15 cells (100X) (0-5/hpf); Platelet Morphology Comment Appears Adequate
[2020-09-25 00:27] LABS: ALT (SGPT) 20 U/L (8-55)
[2020-09-25 11:14] LABS: SARS-CoV-2 PCR by NAA Not Detected (NotDetected)
== END 2020-09-25 03:15 | disposition home or self-care (01) ==
LOC: ERS 22:53
DX: R50.9 Fever, unspecified (principal); R10.84 Generalized abdominal pain; Z20.822 Contact with and (suspected) exposure to COVID-19; F17.210 Nicotine dependence, cigarettes, uncomplicated
CPT/HCPCS: 36415; 74177; 80053; 81003; 81015; 83605; 85025; 87040; Q9967; U0003; U0005

== ENCOUNTER 2020-09-25 20:49 | Inpatient (IN) | payer SELFPAY ==
[2020-09-25 21:36] LABS: Bilirubin Negative (Negative); Blood, Urine Small (Negative); Glucose, Urine (Dipstick) Negative (Negative); Ketone, Urine Negative (Negative); Leukocyte Negative (Negative); Nitrite Negative (Negative); Protein, Urine (Dipstick) Trace mg/dL (Neg-Trace)
[2020-09-25 21:38] LABS: Clarity Clear (Clear)
[2020-09-25] MEDS ORDERED: Vancomycin 1 GM/200 ML BAG ONE (21:40)
[2020-09-25 21:42] LABS: #Lymphocytes 1.3 thou/uL (1.20-3.40); #Monocytes 0.6 thou/uL (0.11-0.59); #Neutrophils 6.7 thou/uL (1.40-6.50); %Basophils 0.2 % (0.0-1.0); %Lymphocytes 15.2 % (21.0-51.0); %Monocytes 7.1 % (0.0-10.0); %Neutrophils 77.5 % (42.0-75.0); Hemoglobin 10.9 g/dL (12.0-16.0); Mean Corpuscular HGB CONC 31.7 g/dL (32.0-36.0); Mean Corpuscular Hemoglobin 21.6 pg (27.0-31.0); Mean Platelet Volume 11.8 fL (7.4-10.4); Platelet Count 236 thou/uL (130-400); RBC Distribution Width 15.4 % (11.5-14.5); Red Blood Cell (RBC) Count 5.05 mill/uL (4.20-5.40); White Blood Cell (WBC) Count 8.7 thou/uL (4.8-10.8)
[2020-09-25 21:42] LABS: Bacteria/HPF None Seen HPF (None Seen); WBC/HPF 0-3 HPF (0-3)
[2020-09-25] MEDS ORDERED: Ibuprofen 800 MG TAB ONE (21:42)
[2020-09-25 21:43] LABS: Pregs Control Background? CLEAR/WHITE (CLR/WHITE); Pregs Control Bar Appear? YES (CONTROL BAR)
[2020-09-25 21:57] LABS: BHCG - Serum Negative (NEGATIVE)
[2020-09-25 21:59] LABS: ALT (SGPT) 26 U/L (8-55); AST (SGOT) 30 U/L (5-34); Albumin 4.3 g/dL (3.5-5.0); Alkaline Phosphatase 96 U/L (40-110); Anion Gap 12 mmol/L (10-20); BUN (Urea Nitrogen) 10 mg/dL (7.0-18.7); Bilirubin, Total 0.3 mg/dL (0.2-1.2); Calc. Creatinine Clearance 0 mL/min (70-130); Calcium 8.8 mg/dL (7.8-10.44); Carbon Dioxide 24 mmol/L (22-29); Chloride 105 mmol/L (98-107); Globulin 3.9 g/dL (2.4-3.5); Glucose 135 mg/dL (70-105); Potassium 3.6 mmol/L (3.5-5.1); Protein, Total 8.2 g/dL (6.0-8.3); Sodium 137 mmol/L (136-145)
[2020-09-25] MEDS ORDERED: Cefepime 2 GM VIAL ONE (22:08)
[2020-09-25 22:15] LABS: CK (CPK) 93 U/L (29-168); Lipase 36 U/L (8-78)
[2020-09-26] MEDS ORDERED: Acetaminophen 325 MG TAB PO PRN (00:15)
[2020-09-26] MEDS ORDERED: Ondansetron PF 4 MG/2 ML Vial IVP PRN (00:15)
[2020-09-26] MEDS ORDERED: Ondansetron ODT 4 MG TAB SL PRN (00:15)
[2020-09-26 00:18] VITALS: BMI 30.3
[2020-09-26] MEDS: Sodium Chloride 0.9% 1,000 ML IV SCH ×4 (00:30→22:25)
[2020-09-26] MEDS ORDERED: Cefepime 2 GM in Sodium Chloride 0.9% 100 ML IVPB SCH (01:00)
[2020-09-26] MEDS ORDERED: Vancomycin 1 GM in Premix Bag 1 BAG IVPB SCH ×2 (09:00→10:00)
[2020-09-26] MEDS: Enoxaparin Sodium 40 MG/0.4 ML SYRINGE SC SCH (11:06)
[2020-09-26] MEDS: Vancomycin HCl 1.25 GM in Sodium Chloride 0.9% 250 ML 250 ML IVPB SCH ×2 (11:06→21:26)
[2020-09-26] MEDS: Acetaminophen 500 MG TAB PO PRN ×2 (11:13→17:41)
[2020-09-26] MEDS: Cefepime 2 GM in Sodium Chloride 0.9% 100 ML IVPB SCH (14:25)
[2020-09-26] MEDS: Ibuprofen 200 MG TAB PO PRN ×2 (16:30→22:29)
[2020-09-27] MEDS: Cefepime 2 GM in Sodium Chloride 0.9% 100 ML IVPB SCH ×2 (01:12→13:19)
[2020-09-27] MEDS: Acetaminophen 500 MG TAB PO PRN ×2 (04:25→17:46)
[2020-09-27] MEDS: Ibuprofen 200 MG TAB PO PRN ×3 (05:37→20:20)
[2020-09-27] MEDS: Levothyroxine Sodium 100 MCG TAB PO SCH (05:41)
[2020-09-27 06:02] LABS: #Lymphocytes 0.7 thou/uL (1.20-3.40); #Monocytes 0.4 thou/uL (0.11-0.59); #Neutrophils 3.5 thou/uL (1.40-6.50); %Basophils 0.7 % (0.0-1.0); %Eosinophils 0.2 % (0.0-10.0); %Lymphocytes 14.8 % (21.0-51.0); %Monocytes 8.3 % (0.0-10.0); Hemoglobin 9.1 g/dL (12.0-16.0); Mean Corpuscular HGB CONC 31.4 g/dL (32.0-36.0); Mean Corpuscular Hemoglobin 21.5 pg (27.0-31.0); Mean Corpuscular Volume 68.5 fL (78.0-98.0); Mean Platelet Volume 8.1 fL (7.4-10.4); Platelet Count 138 thou/uL (130-400); RBC Distribution Width 15.3 % (11.5-14.5); Red Blood Cell (RBC) Count 4.25 mill/uL (4.20-5.40); White Blood Cell (WBC) Count 4.6 thou/uL (4.8-10.8)
[2020-09-27 06:12] LABS: Iron 9 ug/dL (50-170); Iron Binding Capacity, Total 348 mcg/dL (265-497)
[2020-09-27 06:15] LABS: Anion Gap 10 mmol/L (10-20); BUN (Urea Nitrogen) 6 mg/dL (7.0-18.7); Calc. Creatinine Clearance 138 mL/min (70-130); Calcium 8.1 mg/dL (7.8-10.44); Carbon Dioxide 18 mmol/L (22-29); Glucose 128 mg/dL (70-105); Iron Less than 8 ug/dL (50-170); Iron Binding Capacity, Total 353 mcg/dL (265-497)
[2020-09-27 06:28] LABS: Chloride 112 mmol/L (98-107); Potassium 3.3 mmol/L (3.5-5.1); Sodium 137 mmol/L (136-145)
[2020-09-27] MEDS ORDERED: Potassium Bicarbonate/Cit Ac 20 MEQ TAB PO SCH (08:30)
[2020-09-27 08:41] LABS: Vancomycin, Trough 6.2 ug/mL
[2020-09-27] MEDS: Enoxaparin Sodium 40 MG/0.4 ML SYRINGE SC SCH (09:38)
[2020-09-27] MEDS: Sodium Chloride 0.9% 1,000 ML IV SCH ×2 (09:52→22:09)
[2020-09-27] MEDS: Vancomycin HCl 1.25 GM in Sodium Chloride 0.9% 250 ML 250 ML IVPB SCH (09:56)
[2020-09-27] MEDS ORDERED: Vancomycin HCl 1.25 GM in Sodium Chloride 0.9% 250 ML 250 ML IVPB SCH (10:00)
[2020-09-27] MEDS: traMADol HCl 50 MG TAB PO PRN ×2 (11:26→22:09)
[2020-09-27] MEDS: cefTRIAXone\\ROCEPHIN 2 GM in Sodium Chloride 0.9% 100 ML IVPB SCH (16:33)
[2020-09-27 17:25] LABS: HIV (1/2) Antibody/Antigen Non-Reactive (NonReactive); HIV 1/2 INDEX 0.24 S/CO (<1.00)
[2020-09-28] MEDS: Levothyroxine Sodium 100 MCG TAB PO SCH (05:16)
[2020-09-28] MEDS: Acetaminophen 500 MG TAB PO PRN ×3 (05:19→17:08)
[2020-09-28] MEDS: Ibuprofen 200 MG TAB PO PRN ×2 (07:55→18:46)
[2020-09-28] MEDS: Enoxaparin Sodium 40 MG/0.4 ML SYRINGE SC SCH (07:56)
[2020-09-28] MEDS: Sodium Chloride 0.9% 1,000 ML IV SCH ×2 (07:56→17:49)
[2020-09-28] MEDS: traMADol HCl 50 MG TAB PO PRN ×2 (09:16→21:19)
[2020-09-28 16:14] LABS: CSF Source CSF; Clarity Clear (Clear); Tube # 4
[2020-09-28 16:23] LABS: CSF, Glucose 68 mg/dl (40-70); CSF, Protein 23 mg/dL (15-40)
[2020-09-28] MEDS: cefTRIAXone\\ROCEPHIN 2 GM in Sodium Chloride 0.9% 100 ML IVPB SCH (17:08)
[2020-09-29] MEDS: Sodium Chloride 0.9% 1,000 ML IV SCH ×3 (00:42→23:48)
[2020-09-29] MEDS: traMADol HCl 50 MG TAB PO PRN (05:40)
[2020-09-29] MEDS: Levothyroxine Sodium 100 MCG TAB PO SCH (05:40)
[2020-09-29] MEDS: Acetaminophen 500 MG TAB PO PRN (05:40)
[2020-09-29] MEDS ORDERED: Ibuprofen 200 MG TAB PO SCH (06:00)
[2020-09-29] MEDS: Enoxaparin Sodium 40 MG/0.4 ML SYRINGE SC SCH (07:51)
[2020-09-29 08:44] LABS: #Lymphocytes 0.6 thou/uL (1.20-3.40); #Monocytes 0.4 thou/uL (0.11-0.59); #Neutrophils 4.8 thou/uL (1.40-6.50); %Basophils 0.4 % (0.0-1.0); %Eosinophils 0.1 % (0.0-10.0); %Lymphocytes 10.6 % (21.0-51.0); %Monocytes 7.4 % (0.0-10.0); %Neutrophils 81.5 % (42.0-75.0); Hemoglobin 8.6 g/dL (12.0-16.0); Mean Corpuscular HGB CONC 30.5 g/dL (32.0-36.0); Mean Corpuscular Hemoglobin 20.8 pg (27.0-31.0); Mean Corpuscular Volume 68.2 fL (78.0-98.0); Mean Platelet Volume 10.7 fL (7.4-10.4); Platelet Count 131 thou/uL (130-400); RBC Distribution Width 15.8 % (11.5-14.5); Red Blood Cell (RBC) Count 4.14 mill/uL (4.20-5.40); White Blood Cell (WBC) Count 5.9 thou/uL (4.8-10.8)
[2020-09-29 08:58] LABS: ALT (SGPT) 42 U/L (8-55); AST (SGOT) 40 U/L (5-34); Albumin 3.6 g/dL (3.5-5.0); Alkaline Phosphatase 97 U/L (40-110); Anion Gap 11 mmol/L (10-20); BUN (Urea Nitrogen) 7 mg/dL (7.0-18.7); Bilirubin, Total 0.3 mg/dL (0.2-1.2); Calc. Creatinine Clearance 122 mL/min (70-130); Calcium 8.5 mg/dL (7.8-10.44); Carbon Dioxide 24 mmol/L (22-29); Chloride 104 mmol/L (98-107); Globulin 4.1 g/dL (2.4-3.5); Glucose 117 mg/dL (70-105); Potassium 3.1 mmol/L (3.5-5.1); Protein, Total 7.7 g/dL (6.0-8.3); Sodium 136 mmol/L (136-145)
[2020-09-29] MEDS ORDERED: Acetaminophen 500 MG TAB PO SCH (09:00)
[2020-09-29 09:10] LABS: Anisocytosis SLIGHT = 6-15 cells (100X) (0-5/hpf); Elliptocytes SLIGHT = 2-5 cells (100X) (0-1/hpf); Hypochromia SLIGHT = 6-15 cells (100X) (0-5/hpf); MDiff Complete? YES; Microcytosis SLIGHT = 6-15 cells (100X) (0-5/hpf); Platelet Morphology Comment Appears Adequate
[2020-09-29] MEDS ORDERED: Potassium Chloride 20 MEQ TAB PO SCH (11:00)
[2020-09-29] MEDS: Ondansetron PF 4 MG/2 ML Vial IVP PRN ×2 (13:15→20:16)
[2020-09-29] MEDS: Ibuprofen 200 MG TAB PO PRN (13:17)
[2020-09-29] MEDS ORDERED: Iopamidol 370 76% 100 ML VIAL ONE (13:33)
[2020-09-29 15:03] LABS: Strep pneumo Urine Ag NEGATIVE (NEGATIVE)
[2020-09-29 15:04] LABS: Legionella Urinary Ag Negative (Negative)
[2020-09-29] MEDS: Ferrous Sulfate 325 MG TAB PO SCH (19:23)
[2020-09-29] MEDS: Morphine 2 MG/ML VIAL SLOW IVP PRN (20:16)
[2020-09-30] MEDS: Ibuprofen 200 MG TAB PO PRN ×4 (00:49→23:50)
[2020-09-30] MEDS: traMADol HCl 50 MG TAB PO PRN (00:50)
[2020-09-30] MEDS: Levothyroxine Sodium 100 MCG TAB PO SCH (05:53)
[2020-09-30 06:35] LABS: #Lymphocytes 1.2 thou/uL (1.20-3.40); #Monocytes 0.6 thou/uL (0.11-0.59); #Neutrophils 4.5 thou/uL (1.40-6.50); %Basophils 0.4 % (0.0-1.0); %Eosinophils 0.1 % (0.0-10.0); %Monocytes 9.3 % (0.0-10.0); %Neutrophils 71.2 % (42.0-75.0); Hemoglobin 8.2 g/dL (12.0-16.0); Mean Corpuscular HGB CONC 31.8 g/dL (32.0-36.0); Mean Corpuscular Hemoglobin 21.5 pg (27.0-31.0); Mean Corpuscular Volume 67.5 fL (78.0-98.0); Mean Platelet Volume 9.4 fL (7.4-10.4); Platelet Count 109 thou/uL (130-400); Red Blood Cell (RBC) Count 3.84 mill/uL (4.20-5.40); White Blood Cell (WBC) Count 6.3 thou/uL (4.8-10.8)
[2020-09-30 06:47] LABS: Anion Gap 13 mmol/L (10-20); BUN (Urea Nitrogen) 8 mg/dL (7.0-18.7); Calc. Creatinine Clearance 111 mL/min (70-130); Calcium 8.4 mg/dL (7.8-10.44); Carbon Dioxide 23 mmol/L (22-29); Chloride 106 mmol/L (98-107); Glucose 131 mg/dL (70-105); Potassium 4.1 mmol/L (3.5-5.1); Sodium 138 mmol/L (136-145)
[2020-09-30] MEDS: Sodium Chloride 0.9% 1,000 ML IV SCH ×2 (08:15→17:35)
[2020-09-30] MEDS: Enoxaparin Sodium 40 MG/0.4 ML SYRINGE SC SCH (08:15)
[2020-09-30] MEDS: Ferrous Sulfate 325 MG TAB PO SCH ×2 (08:15→15:56)
[2020-09-30 10:17] LABS: EBV VCA IgM <36.0 U/mL (0.0-35.9); Nuclear AG IgG (EBNA) AB >600.0 U/mL (0.0-17.9)
[2020-09-30] MEDS: Morphine 2 MG/ML VIAL SLOW IVP PRN ×3 (12:07→22:39)
[2020-09-30 13:12] LABS: ANA Symphony (Qualitative) Negative (Negative); ANA Symphony (Quantitative) 0.3 Ratio (< 0.7 Negative); dsDNA IgG Antibody 0.9 IU/mL (<10 Negative)
[2020-09-30] MEDS: Acetaminophen 500 MG TAB PO PRN (19:42)
[2020-10-01] MEDS: Acetaminophen 500 MG TAB PO PRN ×3 (03:14→22:43)
[2020-10-01] MEDS: Sodium Chloride 0.9% 1,000 ML IV SCH ×2 (03:15→14:10)
[2020-10-01] MEDS: Ibuprofen 200 MG TAB PO PRN ×3 (05:29→17:24)
[2020-10-01] MEDS: Levothyroxine Sodium 100 MCG TAB PO SCH (05:29)
[2020-10-01] MEDS: Ferrous Sulfate 325 MG TAB PO SCH ×2 (08:08→16:01)
[2020-10-01] MEDS: Enoxaparin Sodium 40 MG/0.4 ML SYRINGE SC SCH (08:08)
[2020-10-01 08:40] LABS: #Lymphocytes 1.7 thou/uL (1.20-3.40); #Monocytes 0.5 thou/uL (0.11-0.59); #Neutrophils 3.9 thou/uL (1.40-6.50); %Basophils 0.6 % (0.0-1.0); %Lymphocytes 27.3 % (21.0-51.0); %Monocytes 8.4 % (0.0-10.0); %Neutrophils 63.8 % (42.0-75.0); Hemoglobin 8.5 g/dL (12.0-16.0); Hypochromia SLIGHT = 6-15 cells (100X) (0-5/hpf); Large Platelets SLIGHT; MDiff Complete? YES; Mean Corpuscular Hemoglobin 20.2 pg (27.0-31.0); Mean Corpuscular Volume 67.2 fL (78.0-98.0); Mean Platelet Volume 11.6 fL (7.4-10.4); Microcytosis MODERATE=15-30 cells (100X) (0-5/hpf); Ovalocytes SLIGHT = 2-5 cells (100X) (0-1/hpf); Platelet Count 128 thou/uL (130-400); Platelet Morphology Comment Appears Decreased; Polychromasia SLIGHT = 2-3 cells (100X) (0-2/hpf); RBC Distribution Width 16.2 % (11.5-14.5); Red Blood Cell (RBC) Count 4.22 mill/uL (4.20-5.40); White Blood Cell (WBC) Count 6.2 thou/uL (4.8-10.8)
[2020-10-01] MEDS: Morphine 2 MG/ML VIAL SLOW IVP PRN ×2 (11:48→16:00)
[2020-10-01 12:11] LABS: Bartonella henselae IgG Negative titer (Neg:<1:320); Bartonella henselae IgM Negative titer (Neg:<1:100); Bartonella quintana IgG Negative titer (Neg:<1:320); Bartonella quintana IgM Negative titer (Neg:<1:100)
[2020-10-01 12:36] LABS: Ref Lab Test Ordered KARIUS; Reference Lab Name KARIUS
[2020-10-01 13:38] LABS: Brucella IgM Ab Negative (Negative)
[2020-10-01 15:14] LABS: Cytoplasmic (C-ANCA) <1:20 titer (Neg:<1:20); Perinuclear (P-ANCA) <1:20 titer (Neg:<1:20)
[2020-10-02] MEDS: Sodium Chloride 0.9% 1,000 ML IV SCH ×3 (02:28→20:52)
[2020-10-02] MEDS: Ibuprofen 200 MG TAB PO PRN ×3 (02:28→20:42)
[2020-10-02] MEDS: Levothyroxine Sodium 100 MCG TAB PO SCH (05:42)
[2020-10-02] MEDS: Ferrous Sulfate 325 MG TAB PO SCH ×2 (07:51→16:50)
[2020-10-02] MEDS: Enoxaparin Sodium 40 MG/0.4 ML SYRINGE SC SCH (07:51)
[2020-10-02] MEDS: Morphine 2 MG/ML VIAL SLOW IVP PRN ×2 (07:52→17:40)
[2020-10-02] MEDS: Acetaminophen 500 MG TAB PO PRN ×2 (11:01→23:50)
[2020-10-02] MEDS ORDERED: IRON SUCROSE COMPLEX 100 MG/5 ML SLOW IVP SCH (13:00)
[2020-10-02] MEDS ORDERED: Iron, Sodium Ferric Gluconate 125 MG in Sodium Chloride 0.9% 100 ML IVPB SCH (13:15)
[2020-10-02] MEDS: traMADol HCl 50 MG TAB PO PRN ×2 (16:52→23:51)
[2020-10-03] MEDS: Ibuprofen 200 MG TAB PO PRN ×2 (04:09→20:20)
[2020-10-03] MEDS: Levothyroxine Sodium 100 MCG TAB PO SCH (05:39)
[2020-10-03 06:43] LABS: Anion Gap 10 mmol/L (10-20); BUN (Urea Nitrogen) 5 mg/dL (7.0-18.7); Calc. Creatinine Clearance 132 mL/min (70-130); Calcium 8.6 mg/dL (7.8-10.44); Carbon Dioxide 26 mmol/L (22-29); Chloride 109 mmol/L (98-107); Glucose 107 mg/dL (70-105); Potassium 4.1 mmol/L (3.5-5.1); Sodium 141 mmol/L (136-145)
[2020-10-03] MEDS: Sodium Chloride 0.9% 1,000 ML IV SCH ×2 (08:10→18:19)
[2020-10-03] MEDS: Ferrous Sulfate 325 MG TAB PO SCH ×2 (08:11→16:25)
[2020-10-03] MEDS: Acetaminophen 500 MG TAB PO PRN ×2 (08:11→19:24)
[2020-10-03] MEDS: Enoxaparin Sodium 40 MG/0.4 ML SYRINGE SC SCH (08:11)
[2020-10-03] MEDS ORDERED: Doxycycline 100 MG CAP PO SCH (17:00)
[2020-10-03] MEDS: Doxycycline Hyclate 100 MG, Admixture Fee 1 EACH in Sodium Chloride 0.9% 100 ML IVPB SCH (20:12)
[2020-10-04] MEDS: Sodium Chloride 0.9% 1,000 ML IV SCH ×3 (05:56→17:25)
[2020-10-04] MEDS: Levothyroxine Sodium 100 MCG TAB PO SCH (05:56)
[2020-10-04] MEDS: Acetaminophen 500 MG TAB PO PRN ×2 (05:56→20:56)
[2020-10-04 06:06] LABS: Hemoglobin 7.6 g/dL (12.0-16.0); Mean Corpuscular Hemoglobin 21.1 pg (27.0-31.0); Mean Corpuscular Volume 67.9 fL (78.0-98.0); Mean Platelet Volume 8.4 fL (7.4-10.4); Platelet Count 198 thou/uL (130-400); RBC Distribution Width 17.1 % (11.5-14.5); Red Blood Cell (RBC) Count 3.61 mill/uL (4.20-5.40); White Blood Cell (WBC) Count 7.6 thou/uL (4.8-10.8)
[2020-10-04 06:24] LABS: ALT (SGPT) 30 U/L (8-55); AST (SGOT) 25 U/L (5-34); Albumin 3.1 g/dL (3.5-5.0); Alkaline Phosphatase 88 U/L (40-110); Anion Gap 12 mmol/L (10-20); BUN (Urea Nitrogen) 6 mg/dL (7.0-18.7); Bilirubin, Total 0.2 mg/dL (0.2-1.2); Calc. Creatinine Clearance 134 mL/min (70-130); Calcium 8.3 mg/dL (7.8-10.44); Carbon Dioxide 23 mmol/L (22-29); Chloride 111 mmol/L (98-107); Globulin 3.5 g/dL (2.4-3.5); Glucose 108 mg/dL (70-105); Potassium 3.9 mmol/L (3.5-5.1); Protein, Total 6.6 g/dL (6.0-8.3); Sodium 142 mmol/L (136-145)
[2020-10-04 06:36] LABS: Band 17 % (5-11); Hypochromia SLIGHT = 6-15 cells (100X) (0-5/hpf); Lymphocytes 25 % (21-51); MDiff Complete? YES; Microcytosis SLIGHT = 6-15 cells (100X) (0-5/hpf); Monocytes 5 % (0-10); Neutrophil 52 % (42-75); Reactive Lymphocytes 1 % (0-10)
[2020-10-04 06:53] LABS: Ref Lab Test Ordered RICKETSIA IgG/IgM; Reference Lab Name LABCORP
[2020-10-04] MEDS: Saccharomyces boulardii 250 MG CAP PO SCH (08:20)
[2020-10-04] MEDS: Ferrous Sulfate 325 MG TAB PO SCH ×2 (08:20→17:21)
[2020-10-04] MEDS: Doxycycline Hyclate 100 MG, Admixture Fee 1 EACH in Sodium Chloride 0.9% 100 ML IVPB SCH ×2 (08:26→20:54)
[2020-10-04] MEDS: traMADol HCl 50 MG TAB PO PRN ×2 (11:10→17:20)
[2020-10-04 17:37] LABS: QuantiFERON-TB Gold Plus Negative (Negative)
[2020-10-05] MEDS: Sodium Chloride 0.9% 1,000 ML IV SCH (04:33)
[2020-10-05] MEDS: Levothyroxine Sodium 100 MCG TAB PO SCH (05:26)
[2020-10-05] MEDS: Saccharomyces boulardii 250 MG CAP PO SCH (10:03)
[2020-10-05] MEDS: Ferrous Sulfate 325 MG TAB PO SCH (10:03)
[2020-10-05] MEDS: Doxycycline Hyclate 100 MG, Admixture Fee 1 EACH in Sodium Chloride 0.9% 100 ML IVPB SCH (10:03)
[2020-10-05 13:36] VITALS: BP 119/80; TEMP 98.8
== END 2020-10-05 13:26 | disposition home or self-care (01) | DRG 871 ==
LOC: ERS 20:49 → T4-B 22:51
PROVIDERS: ADMIT Student in an Organized Health Care Education/Training Program; ATTEND Internal Medicine
PROC: 009U3ZX Drainage of Spinal Canal, Percutaneous Approach, Diagnostic (ICD-10-PCS; principal; 2020-09-28)
PROC: B01BZZZ Fluoroscopy of Spinal Cord (ICD-10-PCS; 2020-09-28)
DX: A41.4 Sepsis due to anaerobes (principal); J18.9 Pneumonia, unspecified organism; A79.89 Other specified rickettsioses; Z20.822 Contact with and (suspected) exposure to COVID-19; E03.9 Hypothyroidism, unspecified; D50.9 Iron deficiency anemia, unspecified; E87.6 Hypokalemia; D69.59 Other secondary thrombocytopenia; E06.3 Autoimmune thyroiditis; F17.210 Nicotine dependence, cigarettes, uncomplicated; E66.9 Obesity, unspecified; L02.92 Furuncle, unspecified; Z68.30 Body mass index [BMI] 30.0-30.9, adult; Z79.899 Other long term (current) drug therapy; Z79.890 Hormone replacement therapy; Z79.82 Long term (current) use of aspirin; Z83.3 Family history of diabetes mellitus; Z82.49 Family history of ischemic heart disease and other diseases of the circulatory system; Z88.6 Allergy status to analgesic agent
CPT/HCPCS: 36415; 62270; 71045; 71046; 71260; 71275; 74177; 80048; 80053; 80202; 81003; 82550; 82945; 83540; 83550; 83605; 83690; 84157; 84703; 85025; 85379; 86038; 86140; 86160; 86225; 86256; 86480; 86611; 86622; 86664; 86665; 87040; 87086; 87116; 87206; 87389; 87449; 87633; 87804; 87899; 89051; 93005; 94760; 96365; J0692; J0696; J1650; J1956; J2270; J2405; J2916; J3370; J3490; J7050; Q9967

== ENCOUNTER 2021-09-04 20:25 | Emergency (ER) | payer SELFPAY ==
[2021-09-04] MEDS ORDERED: Ketorolac Tromethamine 30 MG/ML VIAL ONE (22:36)
[2021-09-04 22:42] LABS: #Basophils 0.1 thou/uL (0.0-0.2); #Eosinphils 0.1 thou/uL (0.0-0.7); #Lymphocytes 3.4 thou/uL (1.20-3.40); #Monocytes 0.7 thou/uL (0.11-0.59); #Neutrophils 5.7 thou/uL (1.40-6.50); %Basophils 0.5 % (0.0-1.0); %Eosinophils 1.2 % (0.0-10.0); %Lymphocytes 33.9 % (21.0-51.0); %Monocytes 7.3 % (0.0-10.0); %Neutrophils 57.1 % (42.0-75.0); Hemoglobin 10.1 g/dL (12.0-16.0); Mean Corpuscular HGB CONC 30.4 g/dL (32.0-36.0); Mean Corpuscular Hemoglobin 22.9 pg (27.0-31.0); Mean Corpuscular Volume 75.4 fL (78.0-98.0); Mean Platelet Volume 8.6 fL (7.4-10.4); Platelet Count 272 thou/uL (130-400); RBC Distribution Width 14.3 % (11.5-14.5); White Blood Cell (WBC) Count 9.9 thou/uL (4.8-10.8)
[2021-09-04 23:07] LABS: ALT (SGPT) 16 U/L (8-55); AST (SGOT) 17 U/L (5-34); Albumin 4.1 g/dL (3.5-5.0); Alkaline Phosphatase 85 U/L (40-110); Anion Gap 11 mmol/L (10-20); BUN (Urea Nitrogen) 11 mg/dL (7.0-18.7); Bilirubin, Total 0.3 mg/dL (0.2-1.2); Calc. Creatinine Clearance 0 mL/min (70-130); Calcium 8.7 mg/dL (7.8-10.44); Carbon Dioxide 26 mmol/L (22-29); Chloride 108 mmol/L (98-107); Globulin 3.6 g/dL (2.4-3.5); Glucose 102 mg/dL (70-105); Potassium 3.4 mmol/L (3.5-5.1); Protein, Total 7.7 g/dL (6.0-8.3); Sodium 142 mmol/L (136-145)
[2021-09-04 23:07] LABS: Bacteria/HPF 1+ HPF (None Seen); Bilirubin Negative (Negative); Blood, Urine Trace (Negative); Clarity Turbid (Clear); Glucose, Urine (Dipstick) Normal (Negative); Ketone, Urine Negative (Negative); Leukocyte 75 Leu/uL (Negative); Nitrite Negative (Negative); Protein, Urine (Dipstick) 20 mg/dL (Neg-Trace); Specific Gravity, Urine 1.027 (1.002-1.036); Urobilinogen Normal mg/dL (Less than 2)
[2021-09-04 23:08] LABS: Pregnancy Test - Urine (BHCG) Negative (Negative); Pregu Control Background? CLEAR/WHITE (CLR/WHITE); Pregu Control Bar Appear? YES (CONTROL BAR); Specific Gravity 1.027 (1.002-1.036)
== END 2021-09-05 00:03 | disposition home or self-care (01) ==
LOC: ERS 20:25
DX: N30.01 Acute cystitis with hematuria (principal); M54.50 Low back pain, unspecified; F17.210 Nicotine dependence, cigarettes, uncomplicated; E07.9 Disorder of thyroid, unspecified; Z79.899 Other long term (current) drug therapy
CPT/HCPCS: 74176; 80053; 81003; 81015; 81025; 83690; 85025; 85652; 96372; J1885

== ENCOUNTER 2023-03-24 16:38 | Emergency (ER) | payer SELFPAY ==
[2023-03-24] MEDS ORDERED: diphenhydrAMINE 50 MG/ML VIAL ONE (16:57)
[2023-03-24] MEDS ORDERED: Metoclopramide HCl 10 MG/2 ML VIAL ONE (16:57)
[2023-03-24 17:18] LABS: #Eosinphils 0.1 thou/uL (0.0-0.7); #Monocytes 0.7 thou/uL (0.11-0.59); #Neutrophils 4.4 thou/uL (1.40-6.50); %Basophils 0.5 % (0.0-1.0); %Eosinophils 1.3 % (0.0-10.0); %Lymphocytes 33.3 % (21.0-51.0); %Monocytes 8.3 % (0.0-10.0); %Neutrophils 56.2 % (42.0-75.0); Hematocrit 32.6 % (36.0-47.0); Hemoglobin 9.8 g/dL (12.0-16.0); Mean Corpuscular HGB CONC 30.1 g/dL (32.0-36.0); Mean Corpuscular Hemoglobin 22.4 pg (27.0-31.0); Mean Corpuscular Volume 74.6 fl (78.0-98.0); Mean Platelet Volume 10.4 fL (7.4-10.4); Platelet Count 271 10x3/uL (130-400); RBC Distribution Width 14.7 % (11.5-14.5); Red Blood Cell (RBC) Count 4.37 mill/uL (4.20-5.40); White Blood Cell (WBC) Count 7.9 10x3/uL (4.8-10.8)
[2023-03-24 17:25] LABS: BHCG - Serum Negative (NEGATIVE); Pregs Control Background? CLEAR/WHITE (CLR/WHITE); Pregs Control Bar Appear? YES (CONTROL BAR)
[2023-03-24 17:41] LABS: ALT (SGPT) 16 U/L (8-55); AST (SGOT) 29 U/L (5-34); Albumin 4.1 g/dL (3.5-5.0); Alkaline Phosphatase 96 U/L (40-110); Anion Gap 15 mmol/L (10-20); BUN (Urea Nitrogen) 17 mg/dL (7.0-18.7); Bilirubin, Total 0.3 mg/dL (0.2-1.2); Calc. Creatinine Clearance 0 mL/min (70-130); Carbon Dioxide 22 mmol/L (22-29); Chloride 107 mmol/L (98-107); Estimated GFR 95; Globulin 3.9 g/dL (2.4-3.5); Glucose 102 mg/dL (70-105); Potassium 4.1 mmol/L (3.5-5.1); Sodium 140 mmol/L (136-145)
[2023-03-24 17:51] LABS: CellaVision Operator ID LAB.CH5; Microcytosis MODERATE=15-30 cells HPF (0-5); Platelet Adequacy Comment Platelets Normal; Polychromasia SLIGHT = 2-3 cells HPF (0-2)
[2023-03-24 17:56] LABS: SARS-CoV-2 NAA Rapid Test Not Detected (NotDetected)
[2023-03-24] MEDS ORDERED: Dexamethasone 10 MG/ML VIAL ONE (18:10)
[2023-03-24] MEDS ORDERED: Ketorolac Tromethamine 30 MG/ML VIAL ONE (18:10)
== END 2023-03-24 20:13 | disposition home or self-care (01) ==
LOC: ERS 16:38
DX: R51.9 Headache, unspecified (principal); Z20.822 Contact with and (suspected) exposure to COVID-19; Z87.891 Personal history of nicotine dependence
CPT/HCPCS: 80053; 84703; 85025; 96365; 96375; J1100; J1200; J1885; J2765